=== PATIENT | female | born 1955 | race Caucasian/White ===

== ENCOUNTER 2017-10-10 09:01 | Emergency (ER) | payer OTHER, SELFPAY ==
[2017-10-10 09:10] VITALS: BP 119/70; PULSE 72; RESP 18; TEMP 36.8; O2SAT 99; BMI 27.4
--- NOTE | 2017-10-10 09:17 | HMH.EDUTC ---
[facility] [place]ression: Sinusitis Qualifiers: Sinusitis location: maxillary Chronicity: unspecified Qualified Code(s): J32.0 - Chronic maxillary sinusitis Disposition: Home, Self-Care Condition on Discharge: Good Instructions: Sinusitis, Sinus Headache, DI for Sinusitis Additional Instructions: Start antibiotic. Sinus infections may take 2-3 days to notice much improvement so be sure to use conservative measures as discussed for symptoms Flonase 2 spray in each nostril daily to help with nasal congestion, sinus an ear pressure/inflammation Lots of Fluids Sleep elevated Humidifer/vaporizer Augmentin can cause GI effects. Probiotics may help to prevent these symptoms Prescriptions: Amoxicillin/Potassium Clav [Augmentin 875-125 Tablet] 1 tab PO Q12H #14 tab Fluticasone Propionate [Flonase 50mcg nasal spray 16gm] 2 spr NS DAILY #1 bottle predniSONE [Prednisone 20mg Tab] 20 mg PO BID #10 tab Time of Disposition: 09:34 Medical Decision Making Vital Signs: 10/10/17 09:10 Temperature 98.3 F Temperature Source Temporal Artery Scan Pulse Rate [Brachial] 72 Respiratory Rate 18 Blood Pressure [Left Arm] 119/70 Blood Pressure Mean [Left Arm] 86 Blood Pressure Source [Left Arm] Automatic Cuff Blood Pressure Position [Left Arm] Sitting 02 Sat by Pulse Oximetry 99 - [place] Inquiry Pt receiving controlled substance: No [place] was queried for this patient: No [facility] [place] - General Stated complaint: head congestion Mode of Arrival: Ambulatory Source of Information: Patient Limitations: No Limitations Description of Symptoms (Recalled from Triage Doc. by RN): sinus drainage, throat irritation, ears bothering her HEENT Symptoms (Recalled from RN notes): Yes Resp Symptoms (Recalled from RN notes): No Skin Symptoms (Recalled from RN notes): No MS Symptoms (Recalled from RN notes): No Functional Status (Recalled from RN notes): na - History of Present Illness Provider Complaint: Pateint state that she has been having sinus pain and pressure along with nasal congestion on and off now for several weeks that would appear to get better then return worse than it was at start. State that she feels like her sinuses are full and draining down the back of her throat. State that her nose feels raw from rubbing and cleaning her nose and she has fever blisters on her lower lip. State that she has medication for the fever blisters that she plans on starting today State that all her grandchildren have recently had the flu and she has been exposed multiple times. 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 - Related Data Home Medications Medication Instructions Recorded Confirmed Estradiol/Norethindrone Acet 0.5 mg PO DAILY 10/10/17 10/10/17 [Estradiol-Noreth 0.5-0.1 mg Tb] Omeprazole [Omeprazole 20mg 20 mg PO DAILY 10/10/17 10/10/17 Capsule] Propranolol HCl [Inderal 20mg 20 mg PO DAILY 10/10/17 10/10/17 tablet] buPROPion HCl [Wellbutrin SR 150mg 150 mg PO DAILY 10/10/17 10/10/17 Tablet] Previous Rx's Medication Instructions Recorded Amoxicillin/Potassium Clav 1 tab PO Q12H #14 tab 10/10/17 [Augmentin 875-125 Tablet] Fluticasone Propionate [Flonase 2 spr NS DAILY #1 bottle 10/10/17 50mcg nasal spray 16gm] predniSONE [Prednisone 20mg 20 mg PO BID #10 tab 10/10/17 Tab] Allergies Allergy/AdvReac Type Severity Reaction Status Date / Time No Known Allergies Allergy Verified 10/10/17 09:14 - Worker's Comp Is this a Worker's Comp case?: No [facility] History I have reviewed the patient's past medical history: Yes - *Social History Alcohol Intake: never - Psychiatric History Expresses thoughts of harming self/others: None Suicide Plan Description: No Plan ROS Obtained: Yes All systems reviewed & no additional complaints - ENT Ears, Nose, Mouth, and Throat: Reports nasal congestion, Reports post nasal drip, Reports sinus pain,
--- NOTE | 2017-10-10 09:27 | ED_ITS ---
[facility] – [place] Disposition Clinical Impression: Sinusitis Qualifiers: Sinusitis location: maxillary Chronicity: unspecified Qualified Code(s): J32.0 - Chronic maxillary sinusitis Disposition: Home, Self-Care Condition on Discharge: Good Instructions: Sinusitis, Sinus Headache, DI for Sinusitis Additional Instructions: Start antibiotic. Sinus infections may take 2-3 days to notice much improvement so be sure to use conservative measures as discussed for symptoms Flonase 2 spray in each nostril daily to help with nasal congestion, sinus an ear pressure/inflammation Lots of Fluids Sleep elevated Humidifer/vaporizer Augmentin can cause GI effects. Probiotics may help to prevent these symptoms Prescriptions: Amoxicillin/Potassium Clav [Augmentin 875-125 Tablet] 1 tab PO Q12H #14 tab Fluticasone Propionate [Flonase 50mcg nasal spray 16gm] 2 spr NS DAILY #1 bottle predniSONE [Prednisone 20mg Tab] 20 mg PO BID #10 tab Time of Disposition: 09:34 Medical Decision Making Vital Signs: 10/10/17 09:10 Temperature 98.3 F Temperature Source Temporal Artery Scan Pulse Rate [Brachial] 72 Respiratory Rate 18 Blood Pressure [Left Arm] 119/70 Blood Pressure Mean [Left Arm] 86 Blood Pressure Source [Left Arm] Automatic Cuff Blood Pressure Position [Left Arm] Sitting 02 Sat by Pulse Oximetry 99 - [place] Inquiry Pt receiving controlled substance: No [place] was queried for this patient: No [facility] [place] HPI - General Stated complaint: head congestion Mode of Arrival: Ambulatory Source of Information: Patient Limitations: No Limitations Description of Symptoms (Recalled from Triage Doc. by RN): sinus drainage, throat irritation, ears bothering her HEENT Symptoms (Recalled from RN notes): Yes Resp Symptoms (Recalled from RN notes): No Skin Symptoms (Recalled from RN notes): No MS Symptoms (Recalled from RN notes): No Functional Status (Recalled from RN notes): na - History of Present Illness Provider Complaint: Pateint state that she has been having sinus pain and pressure along with nasal congestion on and off now for several weeks that would appear to get better then return worse than it was at start. State that she feels like her sinuses are full and draining down the back of her throat. State that her nose feels raw from rubbing and cleaning her nose and she has fever blisters on her lower lip. State that she has medication for the fever blisters that she plans on starting today State that all her grandchildren have recently had the flu and she has been exposed multiple times. 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 - Related Data Home Medications Medication Instructions Recorded Confirmed Estradiol/Norethindrone Acet 0.5 mg PO DAILY 10/10/17 10/10/17 [Estradiol-Noreth 0.5-0.1 mg Tb] Omeprazole [Omeprazole 20mg 20 mg PO DAILY 10/10/17 10/10/17 Capsule] Propranolol HCl [Inderal 20mg 20 mg PO DAILY 10/10/17 10/10/17 tablet] buPROPion HCl [Wellbutrin SR 150mg 150 mg PO DAILY 10/10/17 10/10/17 Tablet] Previous Rx's Medication Instructions Recorded Amoxicillin/Potassium Clav 1 tab PO Q12H #14 tab 10/10/17 [Augmentin 875-125 Tablet] Fluticasone Propionate [Flonase 2 spr NS DAILY #1 bottle 10/10/17 50mcg nasal spray 16gm] predniSONE [Prednisone 20mg 20 mg PO BID #10 tab 10/10/17 Tab
[2017-10-10 09:28] LABS: UTC Influenza A Antigen Negative (Negative); UTC Influenza B Antigen Negative (Negative)
== END 2017-10-10 09:37 | disposition home or self-care (01) ==
PROVIDERS: Emergency Provider Nurse Practitioner
DX: J32.0 Chronic maxillary sinusitis (principal)
CPT/HCPCS: 87804; 99202

== ENCOUNTER → 2018-01-31 12:33 | Outpatient (CLI) | payer OTHER, SELFPAY ==
--- NOTE | 2018-01-31 12:34 | MM_ITS ---
MM Dig screening mamm BI w/CAD CAD Screening ORDERING PHYSICIAN : Ronny Morales MD PATIENT AGE: 62 years GENDER: Female COMPARISON: Previous mammograms: December 2016, 2015, July 2015, 2013 INDICATION: Routine screening. Taking Estradiol. Previous mammotome biopsy left breast. Noncontributory family history TECHNIQUE: Standard CC and MLO images were obtained. Additional axillary cc view included R2 CAD reviewed. FINDINGS: No dominant mass nor suspicious calcifications. Minimal residual fibroglandular elements throughout both breasts. No architectural distortion. . RIGHT BREAST:. No significant new findings LEFT BREAST:No significant new findings Small area of minimal density at the medial left breast is been stable since at least 2014 IMPRESSION: No significant new findings. Bilateral follow-up in one year BI-RADS Category: 2 Benign Finding(s) RECOMMENDED FOLLOW-UP: 1YR - 1 YEAR FOLLOW-UP (A letter has been sent to the patient regarding results of the study.)
== END ==
PROVIDERS: PCP Internal Medicine Adolescent Medicine; Visit Provider Nurse Practitioner Obstetrics & Gynecology
DX: Z12.31 Encounter for screening mammogram for malignant neoplasm of breast (principal)
CPT/HCPCS: 77067

== ENCOUNTER → 2018-06-09 08:43 | Outpatient (CLI) | payer OTHER, SELFPAY ==
[2018-06-09 09:01] LABS: Basophils % 0.6 % (0.1-2.0); Eosinophils # 0.2 K/mm3 (0.0-0.4); Eosinophils % 2.6 % (0.1-12.0); Hemoglobin 13.6 g/dL (12.2-16.2); Lymphocytes # 2.4 K/mm3 (0.7-4.5); Mean Corpuscular HGB Conc 33.1 g/dL (31.8-35.4); Mean Corpuscular Volume 99.7 fl (81-99); Mean Platelet Volume 8.7 fl (7.4-10.4); Monocytes # 0.3 K/mm3 (0.1-1.0); Monocytes % 5.5 % (1.7-9.3); Neutrophils % 50.3 % (37.0-80.0); Platelet Count 266 K/mm3 (142-424); Red Blood Count 4.11 M/mm3 (4.20-5.40); Red Cell Distribution Width 12.4 % (11.5-17.5)
[2018-06-09 10:08] LABS: Alanine Aminotransferase 23 U/L (12-78); Albumin Level 3.5 gm/dL (3.4-5.0); Albumin/Globulin Ratio 1.2 (1.1-1.8); Alkaline Phosphatase 89 U/L (46-116); Anion Gap 8.5 mEq/L (5-15); Aspartate Amino Transferase 13 U/L (15-37); Bilirubin,Total 0.4 mg/dL (0.2-1.0); Blood Urea Nitrogen 8 mg/dL (7-18); Calcium 8.9 mg/dL (8.5-10.1); Carbon Dioxide 31 mmol/L (21.0-32.0); Chloride 111 mmol/L (98-107); Chol/HDL Ratio 2.6 (1-3.5); Cholesterol 133 mg/dL (140-200); Creatinine,Serum 0.91 mg/dL (0.55-1.02); Estimated Glomerular Filt Rate 63 ml/min (>60); GFR (African American) 76 ML/MIN (>60); Globulin 2.9 gm/dl (1.3-3.2); Glucose 96 mg/dL (74-106); HDL Cholesterol 52 mg/dL (29-89); LDL Cholesterol 73 mg/dL (0-130); Magnesium 2.1 mg/dL (1.4-2.2); Potassium 4.5 mmoL/L (3.5-5.1); Sodium 146 mmol/L (136-145); Total Protein,Serum 6.4 gm/dL (6.4-8.2); Triglycerides 41 mg/dL (30-200); VLDL Cholesterol 8 mg/dL (0-40)
== END ==
PROVIDERS: PCP Internal Medicine Adolescent Medicine; Visit Provider Internal Medicine Adolescent Medicine
DX: R00.2 Palpitations (principal); E03.9 Hypothyroidism, unspecified
CPT/HCPCS: 36415; 80053; 80061; 83735; 84443; 85025

== ENCOUNTER → 2018-07-28 12:53 | Outpatient (CLI) | payer OTHER, SELFPAY ==
[2018-07-28 13:18] LABS: Basophils # 0.1 K/mm3 (0-0.2); Basophils % 0.8 % (0.1-2.0); Eosinophils # 0.1 K/mm3 (0.0-0.4); Eosinophils % 1.3 % (0.1-12.0); Hematocrit 41.6 % (37.0-47.0); Hemoglobin 13.8 g/dL (12.2-16.2); Lymphocytes # 2.1 K/mm3 (0.7-4.5); Lymphocytes % 25.7 K/mm3 (10-50); Mean Corpuscular HGB Conc 33.2 g/dL (31.8-35.4); Mean Corpuscular Hemoglobin 33.3 pg (27.0-31.2); Mean Corpuscular Volume 100.5 fl (81-99); Mean Platelet Volume 8.3 fl (7.4-10.4); Monocytes # 0.4 K/mm3 (0.1-1.0); Neutrophils # 5.5 K/mm3 (1.8-7.8); Neutrophils % 67.2 % (37.0-80.0); Platelet Count 294 K/mm3 (142-424); Red Blood Count 4.14 M/mm3 (4.20-5.40); Red Cell Distribution Width 12.7 % (11.5-17.5); White Blood Count 8.2 K/mm3 (4.8-10.8)
[2018-07-28 14:34] LABS: Anion Gap 10.3 mEq/L (5-15); Blood Urea Nitrogen 15 mg/dL (7-18); Calcium 9.1 mg/dL (8.5-10.1); Carbon Dioxide 29 mmol/L (21.0-32.0); Chloride 107 mmol/L (98-107); Creatinine,Serum 0.96 mg/dL (0.55-1.02); Estimated Glomerular Filt Rate 59 ml/min (>60); Free Thyroxine Index 3.6 ug/dL (5.93-13.13); GFR (African American) 71 ML/MIN (>60); Glucose 89 mg/dL (74-106); Potassium 4.3 mmoL/L (3.5-5.1); Sodium 142 mmol/L (136-145); T4 (Thyroxine) 10.4 ug/dl (4.7-13.3); Thyroid Stimulating Hormone 1.56 uIU/ml (0.358-3.740); Triiodothryronine (T3) Uptake 35 % (31-39)
== END ==
PROVIDERS: PCP Internal Medicine Adolescent Medicine; Visit Provider Internal Medicine Adolescent Medicine
DX: E03.9 Hypothyroidism, unspecified (principal); R00.2 Palpitations
CPT/HCPCS: 36415; 80048; 84436; 84443; 84479; 85025

== ENCOUNTER → 2018-10-27 10:29 | Outpatient (CLI) | payer OTHER, SELFPAY ==
[2018-10-27 12:32] LABS: Free Thyroxine Index 3.5 ug/dL (5.93-13.13); T4 (Thyroxine) 9.5 ug/dl (4.7-13.3); Thyroid Stimulating Hormone 2.97 uIU/ml (0.358-3.740); Triiodothryronine (T3) Uptake 37 % (31-39)
== END ==
PROVIDERS: Visit Provider Internal Medicine Adolescent Medicine
DX: E03.9 Hypothyroidism, unspecified (principal); Z80.0 Family history of malignant neoplasm of digestive organs; Z80.41 Family history of malignant neoplasm of ovary
CPT/HCPCS: 36415; 84436; 84443; 84479

== ENCOUNTER → 2018-10-28 04:15 | Outpatient (CLI) | payer OTHER, SELFPAY ==
--- NOTE | 2018-10-28 06:30 | CT_ITS ---
CT chest wo con/high-resolution CT chest HISTORY: ITS.REASON: SOB WITH EXERTION ORDERING PHYSICIAN: John Calles MD PATIENT AGE: 63 years COMPARISON: 11/20/2016 Technique: Axial images obtained with sagittal and coronal reformats. Axial high-resolution images also obtained All CT scans at the facility use one or more dose reduction, viz: automated exposure control, ma/kV adjustment per patient size (including targeted exams where dose is matched to indication, i.e. head), or iterative reconstruction technique. FINDINGS: HEART: Unremarkable. Normal heart size. No significant pericardial effusion. MEDIASTINAL AND HILAR STRUCTURES: No mediastinal or hilar mass evident. No dominant adenopathy. There are a few calcified mediastinal and left hilar lymph nodes AORTA: No acute finding. No thoracic aortic aneurysm LUNGS: No lobar consolidation or collapse. No effusions. There are no suspicious pulmonary nodules. No evidence of interstitial lung disease or pulmonary fibrosis. There is a small nodular opacity which is subpleural in nature in the right apex medially probably due to a small area of scarring at 5 mm. There is a 4 mm opacity in the right upper lobe centrally as seen on coronal image #43 nonspecific. PLEURAL SPACES: No significant effusion. No evidence of pneumothorax. BONY STRUCTURES: There is mild multilevel degenerative disc disease of the thoracic spine. No bony destructive process. No acute fracture or dislocation. LYMPH NODES: No enlarged lymph nodes evident UPPER ABDOMEN: There is an 8 mm isodensity in the hepatic dome not significant change from 11/20/2016 and may be due to a small cyst. ADDITIONAL FINDINGS: No other significant abnormalities IMPRESSION: 1. No acute finding. No evidence of interstitial lung disease or pulmonary fibrosis. 2. Nonspecific subpleural nodular opacity in right apex at 5 mm and a 4 mm nodular opacity in the right upper lobe centrally. Consider 12 month follow-up to confirm stability 3. Stable 8 mm isodensity in the hepatic dome
== END ==
PROVIDERS: PCP Internal Medicine Adolescent Medicine; Visit Provider Internal Medicine Adolescent Medicine
DX: R06.09 Other forms of dyspnea (principal)
CPT/HCPCS: 71250

== ENCOUNTER → 2018-11-12 14:17 | Outpatient (POV) | payer OTHER, SELFPAY | DX: Z00.00 Encounter for general adult medical examination without abnormal findings (principal) ==

== ENCOUNTER → 2018-12-22 12:58 | Outpatient (CLI) | payer OTHER, SELFPAY | PROVIDERS: PCP Internal Medicine Adolescent Medicine; Visit Provider Internal Medicine Adolescent Medicine | DX: N39.0 Urinary tract infection, site not specified (principal) | CPT/HCPCS: 87086 ==

== ENCOUNTER 2019-02-27 18:49 | Emergency (ER) | payer OTHER, SELFPAY ==
[2019-02-27 19:07] VITALS: BP 136/71; PULSE 76; RESP 20; TEMP 36.6; O2SAT 100; BMI 29.2
--- NOTE | 2019-02-27 19:10 | HMH.EDUTC ---
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 Lab Results 02/27/19 18:53: Urine Color Yellow, Urine Appearance Clear, Urine pH 7.0, Ur Specific [place] 1.015, Urine Protein Trace, Urine Glucose (UA) Negative, Urine Ketones Negative, Urine Blood 3+, Urine Nitrate Negative, Urine Bilirubin Negative, Urine Urobilinogen 0.2, Ur Leukocyte Esterase 1+ A [facility] [place] HPI - General Stated complaint: Possible UTI Time Seen by Provider: 02/27/19 19:10 Mode of Arrival: Ambulatory Source of Information: Patient Limitations: No Limitations Description of Symptoms (Recalled from Triage Doc. 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 Onset (ago): hour(s) (3) Relieving factors: none Exacerbating factors: none Associated symptoms: denies other symptoms Treatments prior to arrival: none - Related Data Home Medications Medication Instructions Recorded Confirmed Propranolol HCl [Inderal 20mg 20 mg PO DAILY 10/10/17 01/26/19 tablet] buPROPion HCl [Wellbutrin SR 150mg 150 mg PO DAILY 10/10/17 01/26/19 Tablet] cyanocobalamin (vit B-12) 2,500 2,500 mcg SUBLINGUAL BID 12/12/17 01/26/19 mcg sublingual tablet Levothyroxine Sodium 75 mcg PO DAILY 11/04/18 01/26/19 [Levothyroxine 75mcg (0.075mg) Tab] Previous Rx's Medication Instructions Recorded estradiol-norethindrone acet 0.5 1 tab PO DAILY #28 tab 05/12/18 mg-0.1 mg tablet Ondansetron [Zofran 4mg ODT] 4 mg PO Q8HP PRN #20 tab.rapdis 12/14/18 Phenazopyridine HCl [Pyridium 200 pow PO TID #6 tab 12/14/18 200mg Tablet] Ciprofloxacin HCl [Cipro 500mg 500 mg PO BID 5 Days #10 tab 02/27/19 Tab] Phenazopyridine HCl [Pyridium 200 mg PO Q8HP PRN 2 Days #6 tab 02/27/19 200mg Tablet] Allergies Allergy/AdvReac Type Severity Reaction Status Date / Time No Known Allergies Allergy Verified 01/26/19 10:43 - Worker's Comp Is this a Worker's Comp case?: No [facility] History - Hepatitis A Screen Drug use history?: No High risk sexual behaviors?: No History of sexually transmitted infection?: No Currently employed?: No Childcare worker?: No Do you have indoor plumbing?: Yes Do you have electricity?: Yes Attestation statement:: This patient has been screened for Hepatitis A risk factors. I have reviewed the patient's past medical history: Yes Medical History: Reports:: Anxiety, Gastroesophageal Reflux Disease(GERD) Denies:: Asthma, Diabetes Mellitus Type 1, Diabetes Mellitus Type 2, Hypertension, Internal Pacemaker, Lung Disease, Seizures Other Medical History: Reports: Hypothyroidism Other Surgeries: Yes: Tubal Ligation, Other (TVT). No: Pacemaker Amputation: No Fractures: No Comment: tvt - Soc
[2019-02-27 19:11] LABS: Apearance,Urine Clear (Clear); Bilirubin,Urine Negative (Negative); Blood, Urine 3+ (Negative); Color,Urine Yellow (Yellow); Glucose,Urine (UA) Negative (Negative); Ketones,Urine Negative (Negative); Protein,Urine Trace (Negative); Specific Gravity, Urine 1.015 (1.005-1.030); UTC Leukocyte Esterase,Urine 1+ (Negative); Urobilinogen,Urine 0.2 EU/dl (0.2)
[2019-02-27 19:12] LABS: UTC Nitrate,Urine Negative (Negative)
--- NOTE | 2019-02-27 19:16 | ED_ITS ---
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 Lab Results 02/27/19 18:53: Urine Color Yellow, Urine Appearance Clear, Urine pH 7.0, Ur Specific [place] 1.015, Urine Protein Trace, Urine Glucose (UA) Negative, Urine Ketones Negative, Urine Blood 3+, Urine Nitrate Negative, Urine Bilirubin Negative, Urine Urobilinogen 0.2, Ur Leukocyte Esterase 1+ A [facility] [place] HPI - General Stated complaint: Possible UTI Time Seen by Provider: 02/27/19 19:10 Mode of Arrival: Ambulatory Source of Information: Patient Limitations: No Limitations Description of Symptoms (Recalled from Triage Doc. 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 Onset (ago): hour(s) (3) Relieving factors: none Exacerbating factors: none Associated symptoms: denies other symptoms Treatments prior to arrival: none - Related Data Home Medications Medication Instructions Recorded Confirmed Propranolol HCl [Inderal 20mg 20 mg PO DAILY 10/10/17 01/26/19 tablet] buPROPion HCl [Wellbutrin SR 150mg 150 mg PO DAILY 10/10/17 01/26/19 Tablet] cyanocobalamin (vit B-12) 2,500 2,500 mcg SUBLINGUAL BID 12/12/17 01/26/19 mcg sublingual tablet Levothyroxine Sodium 75 mcg PO DAILY 11/04/18 01/26/19 [Levothyroxine 75mcg (0.075mg) Tab] Previous Rx's Medication Instructions Recorded estradiol-norethindrone acet 0.5 1 tab PO DAILY #28 tab 05/12/18 mg-0.1 mg tablet Ondansetron [Zofran 4mg ODT] 4 mg PO Q8HP PRN #20 tab.rapdis 12/14/18 Phenazopyridine HCl [Pyridium 200 pow PO TID #6 tab 12/14/18 200mg Tablet] Ciprofloxacin HCl [Cipro 500mg 500 mg PO BID 5 Days #10 tab 02/27/19 Tab] Phenazopyridine HCl [Pyridium 200 mg PO Q8HP PRN 2 Days #6 tab 02/27/19 200mg Tablet] Allergies Allergy/AdvReac Type Severity Reaction Status Date / Time No Known Allergies Allergy Verif
[2019-02-27 19:26] VITALS: BP 136/71; PULSE 76; RESP 20; TEMP 36.6; O2SAT 100
== END 2019-02-27 19:27 | disposition home or self-care (01) ==
PROVIDERS: Emergency Provider Physician Assistant; PCP Internal Medicine Adolescent Medicine
DX: N30.00 Acute cystitis without hematuria (principal); K21.9 Gastro-esophageal reflux disease without esophagitis; F41.9 Anxiety disorder, unspecified; E03.9 Hypothyroidism, unspecified
CPT/HCPCS: 81003; 99201

== ENCOUNTER → 2019-04-28 14:30 | Outpatient (CLI) | payer OTHER, SELFPAY ==
[2019-04-28 14:32] LABS: Microscopic, Urine URINE MICROSCOPIC (MICROSCOPIC)
[2019-04-28 15:00] LABS: Appearance,Urine CLEAR (Clear); Bilirubin,Urine Negative (Negative); Blood, Urine TRACE-L (Negative); Color,Urine YELLOW (Yellow); Glucose,Urine (UA) Negative (Negative); Ketones,Urine Negative (Negative); Leukocyte Esterase,Urine Negative (Negative); Nitrate,Urine Negative (Negative); PH,Urine 6.5 (5.0-8.5); Protein,Urine Negative (Negative); Specific Gravity, Urine 1.015 (1.005-1.030); Urobilinogen,Urine 0.2 EU/dl (0.2)
[2019-04-28 15:34] LABS: Bacteria,Urine Trace /lpf; WBC,Urine Occasional #/hpf (0-3)
== END ==
PROVIDERS: Visit Provider Internal Medicine Adolescent Medicine
DX: N39.0 Urinary tract infection, site not specified (principal)
CPT/HCPCS: 81001; 87086

== ENCOUNTER 2019-05-15 13:28 | Outpatient (CLI) | payer OTHER, SELFPAY ==
--- NOTE | 2019-05-15 13:30 | MM_ITS ---
PROCEDURE: MM DIG SCREENING MAMM BI W/CAD CLINICAL INDICATION: Routine Screening Mammogram no hormones. Has been off estradiol 6 months No new complaints. Previous mammotome biopsy left breast Family history. Noncontributory COMPARISON: [facility] DIGITAL MAMM-SCREEN BILATERAL from 05/30/2012 [facility] DIG MAMM-SCREEN STEVE from 07/07/2013 [facility] DIG MAMM-SCREEN STEVE from 07/20/2014 [facility] DIG MAMM-DX UNI ADD VIEWS-LT from 08/10/2014 [facility] DIG MAMM-SCREEN STEVE from 08/18/2015 [facility]XU[facility]L DIG MAMM-DX UNI ADD VIEWS-LT from 08/24/2015 DMDXUWAL DIG MAMM-DX UNI LT W ADD VIEW from 01/26/2016 [facility] DIG MAMM-SCREEN STEVE W/CAD from 01/23/2017 [facility] MM Dig screening mamm BI w/CAD from 01/31/2018 TECHNIQUE: Standard CC and MLO images were obtained. R2 CAD reviewed. FINDINGS: Minimal residual fibroglandular elements both breast moderate diffuse fatty replacement.. No new areas of concern in either breast. Areas of minor asymmetry appear stable. With no dominant or suspicious mass., no suspicious calcifications. Right mammogram:: Stable. No new areas of significant concern. Stable area of mild asymmetric fibroglandular density at the lateral right breast most noted on CC view.. Unchanged since 2013, 2014 CC view. Also it dissipates on today's axillary CC view and MLO view. Left mammogram: stable appearance with no findings of significant concern. Follow-up in 1 year recommended IMPRESSION: Stable mammogram. No new findings of concern Bilateral follow-up 1 year recommended and encouraged BI-RAD Category: 1 Negative FOLLOW-UP: 1YR 1 Year Follow-up (A letter has been sent to the patient regarding results of the study.) Dictated by: Aaron Shaffer MD 05/18/2019 12:00 Signed by: <Electronically signed by Aaron Shaffer MD in [place]> 05/19/2019 12:33
[2019-05-15 14:49] LABS: Microscopic, Urine URINE MICROSCOPIC (MICROSCOPIC)
[2019-05-15 14:54] LABS: Appearance,Urine CLEAR (Clear); Bilirubin,Urine Negative (Negative); Blood, Urine TRACE-I (Negative); Color,Urine YELLOW (Yellow); Glucose,Urine (UA) Negative (Negative); Ketones,Urine Negative (Negative); Leukocyte Esterase,Urine Negative (Negative); Nitrate,Urine Negative (Negative); Protein,Urine Negative (Negative)
[2019-05-15 15:16] LABS: Bacteria,Urine Trace /lpf; RBC,Urine Occasional #/hpf (0-3); Squamous Epithelial Cell,Urine Occasional #/hpf (0-5); WBC,Urine Occasional #/hpf (0-3)
--- NOTE | 2019-05-15 16:27 | PC.NURSE ---
1435 - I&O CATH DONE FOR U/A AND CULTURE AT THIS TIME.
== END 2019-05-15 14:45 | disposition home or self-care (01) ==
LOC: RAD 13:28
PROVIDERS: PCP Internal Medicine Adolescent Medicine; Visit Provider Nurse Practitioner Obstetrics & Gynecology
DX: Z12.31 Encounter for screening mammogram for malignant neoplasm of breast (principal); N94.89 Other specified conditions associated with female genital organs and menstrual cycle; Z87.440 Personal history of urinary (tract) infections
CPT/HCPCS: 77067; 81001; 87086

== ENCOUNTER → 2019-06-23 13:39 | Outpatient (POV) | payer OTHER, SELFPAY | PROVIDERS: Visit Provider Dermatology | DX: Z00.00 Encounter for general adult medical examination without abnormal findings (principal) ==

== ENCOUNTER → 2019-11-25 02:03 | Outpatient (CLI) | payer OTHER, SELFPAY ==
[2019-11-25 04:32] VITALS: BMI 29.2
== END ==
LOC: OBOUT 02:05 → OUTP 02:09
PROVIDERS: PCP Internal Medicine Adolescent Medicine; Visit Provider Emergency Medicine
DX: J32.9 Chronic sinusitis, unspecified (principal)
CPT/HCPCS: G0463

== ENCOUNTER → 2020-04-28 02:59 | Outpatient (CLI) | payer OTHER, SELFPAY ==
[2020-04-28 03:44] LABS: Coronavirus 19 IgG Antibody Negative (Negative); Coronavirus 19 IgM Antibody Negative (Negative)
== END ==
PROVIDERS: PCP Internal Medicine Adolescent Medicine; Visit Provider Family Medicine
DX: Z03.818 Encounter for observation for suspected exposure to other biological agents ruled out (principal)
CPT/HCPCS: 86328

== ENCOUNTER → 2020-05-02 11:44 | Outpatient (CLI) | payer OTHER, SELFPAY ==
--- NOTE | 2020-05-02 11:48 | XR_ITS ---
PROCEDURE: XR FOOT WT BEARING RT 3V CLINICAL INDICATION: pain COMPARISON: No exams were available for comparison FINDINGS: No fracture or dislocation. No lytic or blastic change. There is normal mineralization. The joint spaces are well-preserved. No significant degenerative/arthritic changes. No erosive changes evident. Other findings:None. IMPRESSION: No acute findings. Dictated by: Kevan Belle MD 05/02/2020 13:12 Electronically signed by Kevan Belle MD in [place] 05/02/2020 13:12
--- NOTE | 2020-05-02 11:48 | XR_ITS ---
PROCEDURE: XR FOOT WT BEARING LT 3V CLINICAL INDICATION: pain COMPARISON: No exams were available for comparison FINDINGS: No fracture or dislocation. No lytic or blastic change. There is normal mineralization. There are mild osteoarthritic changes at the 1st metatarsophalangeal joint Other findings:There is a type 1 os navicularis. Minimal osteoarthritic changes are present at the talonavicular and navicular cuneiform joint. There is a small calcaneal spur IMPRESSION: Mild osteoarthritic change Dictated by: Kevan Belle MD 05/02/2020 13:28 Electronically signed by Kevan Belle MD in [place] 05/02/2020 13:28
== END ==
PROVIDERS: PCP Internal Medicine Adolescent Medicine; Visit Provider Podiatrist
DX: M72.2 Plantar fascial fibromatosis (principal)
CPT/HCPCS: 73630

== ENCOUNTER → 2020-05-04 14:18 | Outpatient (CLI) | payer OTHER, SELFPAY ==
[2020-05-04 14:58] LABS: Basophils % 0.3 % (0.1-2.0); Eosinophils % 0.4 % (0.1-12.0); Hematocrit 41.4 % (37.0-47.0); Hemoglobin 13.7 g/dL (12.2-16.2); Lymphocytes # 1.8 K/mm3 (0.7-4.5); Lymphocytes % 23.9 % (10-50); Mean Corpuscular HGB Conc 33.1 g/dL (31.8-35.4); Mean Corpuscular Hemoglobin 33.8 pg (27.0-31.2); Mean Corpuscular Volume 102.4 fl (81-99); Monocytes # 0.3 K/mm3 (0.1-1.0); Monocytes % 3.8 % (1.7-9.3); Neutrophils # 5.4 K/mm3 (1.8-7.8); Neutrophils % 71.6 % (37.0-80.0); Platelet Count 279 K/mm3 (142-424); Red Blood Count 4.05 M/mm3 (4.20-5.40); Red Cell Distribution Width 12.8 % (11.5-17.5); White Blood Count 7.5 K/mm3 (4.8-10.8)
[2020-05-04 15:31] LABS: Alanine Aminotransferase 15 U/L (12-78); Albumin Level 4.2 g/dl (3.5-5.0); Albumin/Globulin Ratio 1.6 (1.1-1.8); Alkaline Phosphatase 96 U/L (38-126); Anion Gap 12.7 mEq/L (5-15); Aspartate Amino Transferase 24 U/L (14-36); Bilirubin,Total 0.6 mg/dl (0.2-1.3); Blood Urea Nitrogen 21 mg/dl (7-17); Calcium 9.9 mg/dl (8.4-10.2); Carbon Dioxide 29 mmol/L (22.0-30.0); Chloride 105 mmol/L (98-107); Cholesterol 198 mg/dl (140-200); Estimated Glomerular Filt Rate 84 ml/min (>60); GFR (African American) 102 ML/MIN (>60); Globulin 2.7 g/dL (1.3-3.2); Glucose 104 mg/dl (74-100); HDL Cholesterol 98 mg/dl (40-60); Potassium 4.7 mmoL/L (3.5-5.1); Sodium 142 mmol/L (136-145); Total Protein,Serum 6.9 g/dl (6.3-8.2); Triglycerides 49 mg/dl (30-150); VLDL Cholesterol 10 mg/dL (0-40)
[2020-05-04 15:41] LABS: Direct LDL Cholesterol 87.12 mg/dL (100-129)
[2020-05-04 16:01] LABS: Thyroid Stimulating Hormone 1.91 uIU/mL (0.465-4.68)
== END ==
PROVIDERS: Visit Provider Internal Medicine Adolescent Medicine
DX: E03.9 Hypothyroidism, unspecified (principal); K21.9 Gastro-esophageal reflux disease without esophagitis
CPT/HCPCS: 36415; 80053; 80061; 84443; 85025

== ENCOUNTER → 2020-05-17 15:47 | Outpatient (CLI) | payer OTHER, SELFPAY ==
--- NOTE | 2020-05-17 15:48 | MM_ITS ---
PROCEDURE: MM DIG SCREENING MAMM BI W/CAD Digital Breast Tomosynthesis Included CLINICAL INDICATION: Routine Screening Mammogram There is a history of breast cancer patient's 2 maternal aunts. There has been a previous biopsy left breast for benign disease. COMPARISON: MG [facility] DIG MAMM-SCREEN STEVE W/CAD from 01/23/2017 MG [facility] MM Dig screening mamm BI w/CAD from 01/31/2018 MG MM DIG SCREENING MAMM BI W/CAD from 05/15/2019 TECHNIQUE: Standard CC and MLO images and 3D Tomosynthesis was obtained. R2 CAD reviewed. FINDINGS: The breasts are composed primarily of fat with minimal scattered fibroglandular densities in each breast and the findings of bilateral and symmetrical. There is no suspicious lesion in either breast and no suspicious microcalcifications. IMPRESSION: Fibrofatty parenchyma with no suspicious lesions seen BI-RAD Category: 1 Negative FOLLOW-UP: 1YR 1 Year Follow-up (A letter has been sent to the patient regarding results of the study.) Dictated by: Dr. Andrew Ramirez MD 05/18/2020 16:45 Dr. Andrew Ramirez MD in [place] 05/18/2020 16:45
== END ==
PROVIDERS: PCP Internal Medicine Adolescent Medicine; Visit Provider Nurse Practitioner Obstetrics & Gynecology
DX: Z12.31 Encounter for screening mammogram for malignant neoplasm of breast (principal)
CPT/HCPCS: 77063; 77067

== ENCOUNTER 2020-09-02 14:24 | Emergency (ER) | payer OTHER, SELFPAY ==
[2020-09-02 14:38] VITALS: BP 156/83; PULSE 67; RESP 18; O2SAT 100
--- NOTE | 2020-09-02 14:48 | HMH.EDUTC ---
[facility] [place] Disposition Clinical Impression: UTI (urinary tract infection) Qualifiers: Urinary tract infection type: site unspecified Hematuria presence: with hematuria Qualified Code(s): N39.0 - Urinary tract infection, site not specified Disposition: Home, Self-Care Condition on Discharge: Good Instructions: Urinary Tract Infection, DI for Urinary Tract Infection (UTI) Additional Instructions: Drink plenty of fluids. Take tylenol for pain or fever. Return if you begin to have difficulty breathing. Follow up with your regular doctor. GO TO THE ER FOR ANY WORSENING SYMPTOMS The pyridium will make your urine turn orange, this is an expected side effect. It will stain your clothes if it comes into contact with them. Prescriptions: Sulfamethoxazole/Trimethoprim [Bactrim DS tablet] 1 each PO BID 7 Days #14 tab Transmission Status: Received by [facility] Phenazopyridine HCl [Pyridium 200mg Tablet] 200 pow PO TID #6 tab Transmission Status: Received by [facility]/ Referrals: John Calles MD [Primary Care Provider] - Forms: Work/School Release Time of Disposition: 14:57 Medical Decision Making - Medical Records Medical records reviewed: No: I reviewed the patient's medical records. - [place] Inquiry Pt receiving controlled substance: No Vital Signs: 09/02/20 14:38 09/02/20 15:04 Temperature 98.1 F Temperature Source Oral Pulse Rate 67 Pulse Rate [Radial] 67 Respiratory Rate 18 18 Blood Pressure 156/86 H Blood Pressure [Right Arm] 156/83 H Blood Pressure Mean [Right Arm] 107 Blood Pressure Source Automatic Cuff Blood Pressure Source [Right Arm] Automatic Cuff Blood Pressure Position Sitting Blood Pressure Position [Right Arm] Sitting 02 Sat by Pulse Oximetry 100 Oxygen Delivery Method Room Air Room Air - Lab Data Lab results reviewed: Yes: I reviewed the patient's lab results. Lab Results 09/02/20 14:26: Urine Color Red, Urine Appearance Clear, Urine pH 7.0, Ur Specific Loco 1.025, Urine Protein 3+, Urine Glucose (UA) Negative, Urine Ketones Negative, Urine Blood 3+, Urine Nitrate Positive A, Urine Bilirubin 1+ A, Urine Urobilinogen 1, Ur Leukocyte Esterase 1+ A Orders (Tests/Meds): ORDERS Category Date Time Status Urine Culture Stat Micro 09/02/20 15:00 Received [facility] [place] HPI - General Stated complaint: Possible bladder infection Time Seen by Provider: 09/02/20 14:48 Mode of Arrival: Ambulatory Source of Information: Patient Limitations: No Limitations Description of Symptoms (Recalled from Triage Doc. by RN): possible uti. blood in urine HEENT Symptoms (Recalled from RN notes): No Resp Symptoms (Recalled from RN notes): No Skin Symptoms (Recalled from RN notes): No MS Symptoms (Recalled from RN notes): No Functional Status (Recalled from RN notes): wnl - History of Present Illness Provider Complaint: She states that she started to have dysuria last night. Since then she has had low back pain, hematuria and urinary frequency. - Related Data Home Medications Medication Instructions Recorded Confirmed Propranolol HCl [Inderal 20mg 20 mg PO DAILY 10/10/17 08/01/20 tablet] cyanocobalamin (vitamin B-12) 2,500 mcg SUBLINGUAL BID 12/12/17 08/01/20 2,500 mcg sublingual tablet Levothyroxine Sodium 75 mcg PO DAILY 11/04/18 08/01/20 [Levothyroxine 75mcg (0.075mg) Tab] cholecalciferol (vitamin D3) 125 125 mcg PO DAILY 08/01/20 08/01/20 mcg (5,000 unit) capsule Previous Rx's Medication Instructions Recorded conjugated estrogens 0.625 mg/gram 0.625 mg VAGINAL .twice weekly #30 08/01/20 vaginal cream g Phenazopyridine HCl [Pyridium 200 pow PO TID #6 tab 09/02/20 200mg Tablet] Sulfamethoxazole/Trimethoprim 1 each PO BID 7 Days #14 tab 09/02/20 [Bactrim DS tablet] Allergies Allergy/AdvReac Type Severity Reaction Status Date / Time No Known Allergies Allergy Verified 08/01/20 10:08 - Worker's Comp
[2020-09-02 15:04] VITALS: BP 156/86; PULSE 67; RESP 18; TEMP 36.7; O2SAT 100
[2020-09-02 15:37] LABS: Apearance,Urine Clear (Clear); Bilirubin,Urine 1+ (Negative); Blood, Urine 3+ (Negative); Color,Urine Red (Yellow); Glucose,Urine (UA) Negative (Negative); Ketones,Urine Negative (Negative); Protein,Urine 3+ (Negative); Specific Gravity, Urine 1.025 (1.005-1.030); Urobilinogen,Urine 1 EU/dl (0.2)
[2020-09-02 15:38] LABS: UTC Leukocyte Esterase,Urine 1+ (Negative); UTC Nitrate,Urine Positive (Negative)
== END 2020-09-02 15:05 | disposition home or self-care (01) ==
PROVIDERS: Emergency Provider Nurse Practitioner Family; PCP Internal Medicine Adolescent Medicine
DX: N30.01 Acute cystitis with hematuria (principal); E03.9 Hypothyroidism, unspecified; K21.9 Gastro-esophageal reflux disease without esophagitis; F41.9 Anxiety disorder, unspecified; Z79.899 Other long term (current) drug therapy
CPT/HCPCS: 81003; 87086; 87088; 87186; 99201

== ENCOUNTER → 2021-05-24 11:06 | Outpatient (CLI) | payer OTHER, SELFPAY ==
[2021-05-24 11:47] LABS: Basophils # 0.1 K/mm3 (0-0.2); Basophils % 1.2 % (0.1-2.0); Eosinophils # 0.1 K/mm3 (0.0-0.4); Eosinophils % 2.2 % (0.1-12.0); Hematocrit 43.5 % (37.0-47.0); Hemoglobin 14.4 g/dL (12.2-16.2); Lymphocytes # 1.7 K/mm3 (0.7-4.5); Mean Corpuscular HGB Conc 33.2 g/dL (31.8-35.4); Mean Corpuscular Hemoglobin 33.5 pg (27.0-31.2); Mean Corpuscular Volume 100.9 fl (81-99); Monocytes # 0.4 K/mm3 (0.1-1.0); Monocytes % 6.1 % (1.7-9.3); Neutrophils # 3.8 K/mm3 (1.8-7.8); Neutrophils % 62.5 % (37.0-80.0); Platelet Count 310 K/mm3 (142-424); Red Blood Count 4.31 M/mm3 (4.20-5.40); Red Cell Distribution Width 13.1 % (11.5-17.5); White Blood Count 6.1 K/mm3 (4.8-10.8)
[2021-05-24 12:33] LABS: Chloride 107 mmol/L (98-107); Potassium 5.3 mmoL/L (3.5-5.1); Sodium 142 mmol/L (136-145)
[2021-05-24 12:35] LABS: Alanine Aminotransferase 12 U/L (12-78); Aspartate Amino Transferase 27 U/L (14-36); Blood Urea Nitrogen 14 mg/dl (7-17); Estimated Glomerular Filt Rate 63 ml/min (>60); GFR (African American) 76 ML/MIN (>60)
[2021-05-24 12:36] LABS: Albumin/Globulin Ratio 1.4 (1.1-1.8); Alkaline Phosphatase 93 U/L (38-126); Anion Gap 12.3 mEq/L (5-15); Bilirubin,Total 0.7 mg/dl (0.2-1.3); Calcium 9.7 mg/dl (8.4-10.2); Carbon Dioxide 28 mmol/L (22.0-30.0); Chol/HDL Ratio 2.4 (1-3.5); Cholesterol 190 mg/dl (140-200); Globulin 2.8 g/dL (1.3-3.2); Glucose 97 mg/dl (74-100); HDL Cholesterol 80 mg/dl (40-60); Total Protein,Serum 6.8 g/dl (6.3-8.2); Triglycerides 57 mg/dl (30-150); VLDL Cholesterol 11 mg/dL (0-40)
[2021-05-24 12:47] LABS: Direct LDL Cholesterol 85.88 mg/dL (100-129)
[2021-05-24 13:06] LABS: Thyroid Stimulating Hormone 1.95 uIU/mL (0.465-4.68)
== END ==
PROVIDERS: Visit Provider Internal Medicine Adolescent Medicine
DX: R00.2 Palpitations (principal); E03.9 Hypothyroidism, unspecified
CPT/HCPCS: 36415; 80053; 80061; 84443; 85025

== ENCOUNTER → 2021-05-30 08:29 | Outpatient (CLI) | payer OTHER, SELFPAY ==
--- NOTE | 2021-05-30 08:30 | MM_ITS ---
PROCEDURE: MM DIG SCREENING MAMM BI W/CAD Digital Breast Tomosynthesis Included CLINICAL INDICATION: Routine Screening Mammogram COMPARISON: MG [facility] MM Dig screening mamm BI w/CAD from 01/31/2018 MG MM DIG SCREENING MAMM BI W/CAD from 05/15/2019 MG MM DIG SCREENING MAMM BI W/CAD from 05/17/2020 TECHNIQUE: Standard CC and MLO images and 3D Tomosynthesis was obtained. R2 CAD reviewed. FINDINGS: There are scattered areas of fibroglandular density. No suspicious appearing mass, malignant-appearing microcalcification, architectural distortion, or skin thickening. IMPRESSION: No change with no evidence of malignancy BI-RAD Category: 1 Negative FOLLOW-UP: 1 YR 1 Year Follow-up (A letter has been sent to the patient regarding results of the study.) Dictated by: Kevan Belle MD 06/06/2021 15:23 Kevan Belle MD in [place] 06/06/2021 15:23
== END ==
PROVIDERS: PCP Internal Medicine Adolescent Medicine; Visit Provider Nurse Practitioner Obstetrics & Gynecology
DX: Z12.31 Encounter for screening mammogram for malignant neoplasm of breast (principal)
CPT/HCPCS: 77063; 77067

== ENCOUNTER 2021-07-01 12:34 | Emergency (ER) | payer OTHER, SELFPAY ==
[2021-07-01 13:20] VITALS: BP 139/83; PULSE 83; RESP 19; TEMP 36.8; O2SAT 98; BMI 29.0
[2021-07-01 13:40] LABS: Apearance,Urine Cloudy (Clear); Color,Urine Red (Yellow); PH,Urine 8.5 (5.0-8.5); Specific Gravity, Urine 1.015 (1.005-1.030)
--- NOTE | 2021-07-01 13:40 | HMH.EDUTC ---
[facility] [place] Disposition Clinical Impression: UTI (urinary tract infection) Qualifiers: Urinary tract infection type: acute cystitis Hematuria presence: with hematuria Qualified Code(s): N30.01 - Acute cystitis with hematuria Disposition: Home, Self-Care Condition on Discharge: Good Instructions: DI for Urinary Tract Infection (UTI) Additional Instructions: Increase fluids, water and not soda or tea. Can drink cranberry juice or cranberry extract. White front to back Wear cotton underwear Empty bladder after intercourse Start antibiotics immediately and make sure you take the full course although you may start to see improvement over the next 48 hours. You can eat yogurt or take probiotics to decrease diarrhea or yeast infection caused by the antibiotic Be sure to follow-up anytime for new or worsening symptoms in 48 hours for wound urine culture results be sure to let you PCP no recent urine for culture so they can request records and ensure that you have appropriate antibiotic if you are not getting better or getting worse. If symptoms worsen or do not improve return or be seen in the ER. Follow-up with primary care this week. Prescriptions: cephALEXin [Cephalexin 500mg Tab] 500 mg PO BID 7 Days #14 tab Transmission Status: [facility] Phenazopyridine HCl [Pyridium] 100 mg PO BID PRN 3 Days #6 tab PRN Reason: Dysuria Transmission Status: P[facility] to [facility] Referrals: John Calles MD [Primary Care Provider] - Time of Disposition: 13:45 Medical Decision Making - [place] Inquiry Pt receiving controlled substance: No Vital Signs: 07/01/21 13:20 Temperature 98.3 F Temperature Source Oral Pulse Rate [Right Brachial] 83 Respiratory Rate 19 Blood Pressure [Right Arm] 139/83 Blood Pressure Mean [Right Arm] 101 Blood Pressure Source [Right Arm] Automatic Cuff Blood Pressure Position [Right Arm] Sitting 02 Sat by Pulse Oximetry 98 Oxygen Delivery Method Room Air Orders (Tests/Meds): ORDERS Category Date Time Status Urine Culture Stat Micro 07/01/21 13:15 Received [facility] [place] HPI - General Chief complaint: Urgent Treatment Center Stated complaint: POSIBLE uti Time Seen by Provider: 07/01/21 13:40 Mode of Arrival: Ambulatory Source of Information: Patient Limitations: No Limitations Description of Symptoms (Recalled from Triage Doc. by RN): PATIENT C/O HEMATURIA AND PELVIC PRESSURE THAT STARTED THIS MORNING HEENT Symptoms (Recalled from RN notes): No Resp Symptoms (Recalled from RN notes): No Skin Symptoms (Recalled from RN notes): No MS Symptoms (Recalled from RN notes): No Functional Status (Recalled from RN notes): WNL - History of Present Illness Provider Complaint: 66 yr old female presents for burning,freq,urgency and blood in urine since this am. - Related Data Home Medications Medication Instructions Recorded Confirmed Propranolol HCl [Inderal 20mg 20 mg PO DAILY 10/10/17 12/12/20 tablet] cyanocobalamin (vitamin B-12) 2,500 mcg SUBLINGUAL BID 12/12/17 12/12/20 2,500 mcg sublingual tablet Levothyroxine Sodium 75 mcg PO DAILY 11/04/18 12/12/20 [Levothyroxine 75mcg (0.075mg) Tab] cholecalciferol (vitamin D3) 125 125 mcg PO DAILY 08/01/20 12/12/20 mcg (5,000 unit) capsule Previous Rx's Medication Instructions Recorded Phenazopyridine HCl [Pyridium 200 pow PO TID #6 tab 09/02/20 200mg Tablet] Sulfamethoxazole/Trimethoprim 1 each PO BID 7 Days #14 tab 09/02/20 [Bactrim DS tablet] estradiol 1 appful VAGINAL .twice weekly 03/02/21 #42.5 g Phenazopyridine HCl [Pyridium] 100 mg PO BID PRN 3 Days #6 tab 07/01/21 cephALEXin [Cephalexin 500mg Tab] 500 mg PO BID 7 Days #14 tab 07/01/21 Allergies Allergy/AdvReac Type Severity Reaction Status Date / Time No Known Allergies Allergy Verified 12/12/20 10:55 - Worker's Comp Is this a Worker's Comp case?: No [facility] History - Hepatitis A Screen Drug use history?: No High risk sexu
[2021-07-01 13:41] LABS: Bilirubin,Urine 3+ (Negative); Blood, Urine 3+ (Negative); Glucose,Urine (UA) 100 (Negative); Ketones,Urine 15 (Negative); Protein,Urine 3+ (Negative); UTC Leukocyte Esterase,Urine 3+ (Negative); UTC Nitrate,Urine Positive (Negative); Urobilinogen,Urine 4 EU/dl (0.2)
[2021-07-01 13:55] VITALS: BP 139/83; PULSE 83; RESP 19; TEMP 36.8; O2SAT 98
== END 2021-07-01 13:59 | disposition home or self-care (01) ==
PROVIDERS: Emergency Provider Nurse Practitioner Family; PCP Internal Medicine Adolescent Medicine
DX: N30.01 Acute cystitis with hematuria
CPT/HCPCS: 81003; 87086; 99202; G0463

== ENCOUNTER 2021-09-27 18:41 | Emergency (ER) | payer OTHER, SELFPAY ==
[2021-09-27 18:50] VITALS: BP 152/44; PULSE 72; RESP 20; TEMP 36.9; O2SAT 97; BMI 32.4
[2021-09-27 19:35] LABS: UTC Strep Screen (Rapid) Negative (Negative)
--- NOTE | 2021-09-27 19:44 | HMH.EDUTC ---
[facility] [place] Clinical Impression: Otitis media Qualifiers: Otitis media type: unspecified Laterality: left Qualified Code(s): H66.92 - Otitis media, unspecified, left ear Disposition: Home, Self-Care Condition on Discharge: Good Instructions: Sore Throat, Middle Ear Infection, Amoxicillin Additional Instructions: *Monitor Temp, Over the counter Motrin or Tylenol as directed/as needed Tylenol every 4 hours and Motrin every 6 hours (as long as your family doctor has told you that you can take it) for fever or pain. and straight to ER if unable to lower temp less than 101.0 after medication given *Warm salt water gargles may help to soothe the throat *Throat Lozenges *Warm fluids like tea with honey may help to soothe the throat *Sleep elevated *Humidifier/Vaporizer Take medications as prescribed Your throat swab was sent for culture. Those results are typically sent to your primary care. Be sure to follow up in 2-3 days with your family doctor/primary care physician if no improvement so they can review those result and treat if necessary. If you don?t have a primary care doctor, I recommend you get one but in the mean time, you will have to return to a walk in clinic Follow up IMMEDIATELY for new or worsening symptoms or no Noticeable improvement over the next 48-72 hours. 911 for difficulty breathing or swallowing Prescriptions: Amoxicillin [Amoxicillin 500mg Cap] 500 mg PO TID #30 cap Transmission Status: [facility] methylPREDNISolone [Medrol 4mg tab] 4 mg PO DIRECTED #21 tab Transmission Status: P[facility] to [facility] Referrals: John Calles MD [Primary Care Provider] - As needed Time of Disposition: 19:54 Medical Decision Making - [place] Inquiry Pt receiving controlled substance: No [place] was queried for this patient: No Vital Signs: 09/27/21 18:50 Temperature 98.5 F Temperature Source Oral Pulse Rate [Right Brachial] 72 Respiratory Rate 20 Blood Pressure [Right Arm] 152/44 H Blood Pressure Mean [Right Arm] 80 Blood Pressure Source [Right Arm] Automatic Cuff Blood Pressure Position [Right Arm] Sitting 02 Sat by Pulse Oximetry 97 Oxygen Delivery Method Room Air - Lab Data Lab results reviewed: Yes: I reviewed the patient's lab results. Lab Results 09/27/21 19:34: Strep [facility] Negative Orders (Tests/Meds): ORDERS Category Date Time Status Strep Screen Confirmation Routine Micro 09/27/21 19:34 Re[place] [facility] [place] - General Stated complaint: sore throat, L earache Time Seen by Provider: 09/27/21 19:44 Mode of Arrival: Ambulatory Source of Information: Patient Limitations: No Limitations Description of Symptoms (Recalled from Triage Doc. by RN): PATIENT C/O SORE THROAT, SINUS DRAINAGE, AND LEFT EAR PAIN HEENT Symptoms (Recalled from RN notes): Yes Resp Symptoms (Recalled from RN notes): No Skin Symptoms (Recalled from RN notes): No MS Symptoms (Recalled from RN notes): No Functional Status (Recalled from RN notes): WNL - Related Data Home Medications Medication Instructions Recorded Confirmed Propranolol HCl [Inderal 20mg 20 mg PO DAILY 10/10/17 09/27/21 tablet] Levothyroxine Sodium 75 mcg PO DAILY 11/04/18 09/27/21 [Levothyroxine 75mcg (0.075mg) Tab] Previous Rx's Medication Instructions Recorded Amoxicillin [Amoxicillin 500mg 500 mg PO TID #30 cap 09/27/21 Cap] methylPREDNISolone [Medrol 4mg 4 mg PO DIRECTED #21 tab 09/27/21 tab] Allergies Allergy/AdvReac Type Severity Reaction Status Date / Time No Known Allergies Allergy Verified 08/15/21 09:09 - Worker's Comp Is this a Worker's Comp case?: No [facility] History - Hepatitis A Screen Drug use history?: No High risk sexual behaviors?: No History of sexually transmitted infection?: No Currently employed?: No Childcare worker?: No Do you have indoor plumbing?: Yes Do you have electricity?: Yes Attestation [facility]
[2021-09-27 19:56] VITALS: BP 152/44; PULSE 72; RESP 20; TEMP 36.9; O2SAT 97
== END 2021-09-27 20:07 | disposition home or self-care (01) ==
PROVIDERS: Emergency Provider Nurse Practitioner; PCP Internal Medicine Adolescent Medicine
DX: H66.92 Otitis media, unspecified, left ear (principal); K21.9 Gastro-esophageal reflux disease without esophagitis; E03.9 Hypothyroidism, unspecified; F41.9 Anxiety disorder, unspecified
CPT/HCPCS: 87880; 99202; G0463

== ENCOUNTER → 2021-10-30 13:04 | Outpatient (CLI) | payer OTHER, SELFPAY ==
--- NOTE | 2021-10-30 13:15 | CT_ITS ---
FINAL REPORT TECHNIQUE: Axial CT images of the abdomen and pelvis were obtained before and after the administration of IV contrast. Oral contrast was administered.This study was performed with techniques to keep radiation doses as low as reasonably achievable (ALARA). Individualized dose reduction techniques using automated exposure control or adjustment of mA and/or kV according to the patient''s size were employed. CLINICAL HISTORY: BLOOD IN URINE, HEMATURIA, UNSPECIFIED FINDINGS: Abdomen: There is mild bibasilar atelectasis. The heart is normal in size. There is a small cyst in the right hepatic lobe. The gallbladder is present. The spleen is unremarkable. No adrenal masses present. The pancreas has an unremarkable appearance. The kidneys enhance normally. The aorta is normal in caliber. There is no free fluid or adenopathy. No mass or abnormal fluid collection is seen. Precontrast images demonstrate no evidence of nephrolithiasis. Pelvis: The appendix is normal. There is mild nonspecific bladder wall thickening which is likely inflammatory. No inflammatory process is seen. There is no evidence of mass or adenopathy. There is no evidence of bowel obstruction. IMPRESSION: Mild nonspecific bladder wall thickening is likely inflammatory. Reviewed, Interpreted and Dictated by Corky Cervantes III, MD Transcribed by Dominik Wolff Authenticated by Corky Cervantes III, MD on 10/30/2021 03:26:36 PM [facility]
[2021-10-30 13:34] LABS: Blood Urea Nitrogen 17 mg/dl (7-17); Estimated Glomerular Filt Rate 63 ml/min (>60); GFR (African American) 76 ML/MIN (>60)
== END ==
PROVIDERS: PCP Internal Medicine Adolescent Medicine; Visit Provider Urology
DX: R31.9 Hematuria, unspecified (principal)
CPT/HCPCS: 36415; 74178; 82565; 84520; Q9967

== ENCOUNTER → 2021-12-03 06:30 | Outpatient (CLI) | payer OTHER, SELFPAY | PROVIDERS: PCP Internal Medicine Adolescent Medicine; Visit Provider Urology | DX: Z01.818 Encounter for other preprocedural examination (principal); Z11.52 Encounter for screening for COVID-19 | CPT/HCPCS: C9803; U0003; U0005 ==

== ENCOUNTER 2021-12-28 11:50 | Emergency (ER) | payer OTHER, SELFPAY ==
[2021-12-28 14:29] VITALS: BP 0/0; PULSE 0; RESP 0; TEMP -17.7; TEMP 0
== END 2021-12-28 14:27 | disposition left against medical advice (07) ==
LOC: UTC 11:54
PROVIDERS: Emergency Provider Nurse Practitioner Family; PCP Internal Medicine Adolescent Medicine
DX: Z53.21 Procedure and treatment not carried out due to patient leaving prior to being seen by health care provider (principal)

== ENCOUNTER 2022-02-02 20:04 | Outpatient (CLI) | payer OTHER, SELFPAY ==
[2022-02-02 20:04] VITALS: BP 110/78; PULSE 70; RESP 18; TEMP 36.7; O2SAT 99
[2022-02-02 20:09] VITALS: BMI 30.9
== END 2022-02-02 20:12 | disposition home or self-care (01) ==
LOC: INF 20:05
PROVIDERS: PCP Internal Medicine Adolescent Medicine; Visit Provider Emergency Medicine
DX: L23.7 Allergic contact dermatitis due to plants, except food (principal)

== ENCOUNTER → 2022-04-10 08:02 | Outpatient (POV) | payer OTHER, SELFPAY | PROVIDERS: Visit Provider Dermatology | DX: Z00.00 Encounter for general adult medical examination without abnormal findings (principal) ==

== ENCOUNTER → 2022-06-05 09:51 | Outpatient (CLI) | payer OTHER, SELFPAY ==
--- NOTE | 2022-06-05 09:51 | MM_ITS ---
PROCEDURE INFORMATION: Exam: MG Bilateral Screening 3D Mammography Exam date and time: 06/05/2022 9:44 AM Age: 67 years old Clinical indication: Screening examination TECHNIQUE: Imaging protocol: Bilateral Screening tomosynthesis and 2D mammography including computer-aided detection (CAD) when performed. COMPARISON: 1. MG MM DIG SCREENING MAMM BI W/CAD 05/30/2021 8:31 AM 2. MG MM DIG SCREENING MAMM BI W/CAD 05/17/2020 3:51 PM FINDINGS: MAMMOGRAPHY: Breast composition: The breasts are almost entirely fatty. Mass: None. Architectural distortion: None. Calcifications: No suspicious calcifications. Asymmetric density: None. Skin thickening: None. Axillary adenopathy: None. IMPRESSION: No mammographic evidence of malignancy. Annual screening is recommended unless otherwise clinically indicated. ASSESSMENT: BI-RADS Category 1: Negative
== END ==
PROVIDERS: PCP Internal Medicine Adolescent Medicine; Visit Provider Nurse Practitioner Obstetrics & Gynecology
DX: Z12.31 Encounter for screening mammogram for malignant neoplasm of breast (principal)
CPT/HCPCS: 77063; 77067

== ENCOUNTER → 2022-07-11 09:33 | Outpatient (CLI) | payer OTHER, SELFPAY ==
[2022-07-11 10:20] LABS: Basophils # 0.1 K/mm3 (0-0.2); Basophils % 0.9 % (0.1-2.0); Eosinophils # 0.2 K/mm3 (0.0-0.4); Eosinophils % 2.6 % (0.1-12.0); Hematocrit 43.7 % (37.0-47.0); Hemoglobin 13.3 g/dL (12.2-16.2); Lymphocytes # 1.8 K/mm3 (0.7-4.5); Lymphocytes % 31.8 % (10-50); Mean Corpuscular HGB Conc 30.4 g/dL (31.8-35.4); Mean Corpuscular Hemoglobin 31.5 pg (27.0-31.2); Mean Corpuscular Volume 103.7 fl (81-99); Mean Platelet Volume 8.5 fl (7.4-10.4); Monocytes # 0.4 K/mm3 (0.1-1.0); Monocytes % 6.7 % (1.7-9.3); Neutrophils # 3.3 K/mm3 (1.8-7.8); Platelet Count 308 K/mm3 (142-424); Red Blood Count 4.22 M/mm3 (4.20-5.40); Red Cell Distribution Width 12.5 % (11.5-17.5); White Blood Count 5.7 K/mm3 (4.8-10.8)
[2022-07-11 12:27] LABS: Alanine Aminotransferase 22 U/L (12-78); Albumin Level 3.8 g/dl (3.5-5.0); Albumin/Globulin Ratio 1.5 (1.1-1.8); Alkaline Phosphatase 129 U/L (38-126); Anion Gap 10.5 mEq/L (5-15); Aspartate Amino Transferase 31 U/L (14-36); Bilirubin,Total 0.5 mg/dl (0.2-1.3); Blood Urea Nitrogen 17 mg/dl (7-17); Calcium 9.2 mg/dl (8.4-10.2); Carbon Dioxide 31 mmol/L (22.0-30.0); Chloride 104 mmol/L (98-107); Chol/HDL Ratio 2.5 (1-3.5); Cholesterol 188 mg/dl (140-200); Estimated Glomerular Filt Rate 72 ml/min (>60); GFR (African American) 87 ML/MIN (>60); Globulin 2.6 g/dL (1.3-3.2); Glucose 95 mg/dl (74-100); HDL Cholesterol 74 mg/dl (40-60); Magnesium 2.1 mg/dl (1.6-2.3); Potassium 4.5 mmoL/L (3.5-5.1); Sodium 141 mmol/L (136-145); Total Protein,Serum 6.4 g/dl (6.3-8.2); Triglycerides 75 mg/dl (30-150); VLDL Cholesterol 15 mg/dL (0-40)
[2022-07-11 12:38] LABS: Direct LDL Cholesterol 86.39 mg/dL (100-129)
[2022-07-11 12:57] LABS: Thyroid Stimulating Hormone 0.55 uIU/mL (0.465-4.68)
== END ==
PROVIDERS: PCP Internal Medicine Adolescent Medicine; Visit Provider Internal Medicine Adolescent Medicine
DX: R00.2 Palpitations (principal); E03.9 Hypothyroidism, unspecified; K21.9 Gastro-esophageal reflux disease without esophagitis
CPT/HCPCS: 36415; 80053; 80061; 83735; 84443; 85025

== ENCOUNTER 2022-08-01 10:32 | Emergency (ER) | payer OTHER, SELFPAY ==
[2022-08-01 11:32] VITALS: BMI 32.2
[2022-08-01 11:45] LABS: Influenza A, PCR Not Detected (NotDetected); Influenza B, PCR Not Detected (NotDetected)
[2022-08-01 11:59] VITALS: BP 132/63; PULSE 82; RESP 18; TEMP 37.1; O2SAT 98; BMI 32.2
[2022-08-01 12:04] VITALS: BP 132/63; PULSE 82; RESP 16; TEMP 36.8; O2SAT 97
[2022-08-01 12:10] LABS: Coronavirus 19, PCR Detected (NotDetected)
--- NOTE | 2022-08-01 12:17 | EXP.UTC ---
Discharge Plan Disposition Patient Disposition: Home, Self-Care Condition: Good Prescriptions Prescriptions: New methylprednisolone [Medrol (Amado)] 4 mg tablets,dose pack See Rx Instructions .Route .COMPLEX 6 Days Qty: 21 0RF Rx Instructions: taper pack; No Action metoprolol succinate 50 mg tablet extended release 24 hr 50 mg PO Label Comments: TAKE ONE TABLET BY MOUTH EVERY DAY levothyroxine 75 MCG tablet 75 mcg PO DAILY Referrals Follow up/Referrals: John Calles MD [Primary Care Provider] - See instructions Activity Restrictions/Add. Instructions Additional Instructions/Restrictions: If your symptoms get worse and you decide about Paxlovid call and discuss with your Family Doctor *Monitor Temp, Over the counter Motrin or Tylenol as directed/as needed Tylenol every 4 hours and Motrin every 6 hours (as long as your family doctor has told you that you can take it) for fever or pain. and straight to ER if unable to lower temp less than 101.0 after medication given *Warm salt water gargles may help to soothe the throat *Throat Lozenges? *Warm fluids like tea with honey may help to soothe the throat? *Sleep elevated *Humidifier/Vaporizer Make sure that your drinking plenty of fluids to keep yourself hydrated Follow up IMMEDIATELY for new or worsening symptoms or no Noticeable improvement over the next 48-72 hours. 911 for difficulty breathing or swallowing Clinical Impressions Clinical Impression: COVID-19 Stand Alone Forms Stand Alone Forms: Work/School Release Instructions Patient Instructions: Coronavirus Disease 2019 Discharge ED Provider: Sylvie Boss [facility] General Stated complaint: sore throat, cough, congestion Mode of Arrival: Ambulatory Source of Information: Patient Limitations: No Limitations Time Seen by Provider: 08/01/22 12:17 Description of Symptoms (Recalled from Triage Doc. by RN): t c/o positive home covid test, sore throat, asinus congestion, left ear pain cough and lethargy since saturday HEENT Symptoms (Recalled from RN notes): Yes Resp Symptoms (Recalled from RN notes): Yes Skin Symptoms (Recalled from RN notes): No MS Symptoms (Recalled from RN notes): No Functional Status (Recalled from RN notes): na History of Present Illness Provider Complaint: Patient states that she started several days ago with sinus pain and pressure that is worse on the left side States that her left ear feels stopped up and pressure in her sinuses behind her left eye States that last night she was feeling worse and today still having symptoms so she took a home COVID test and it was positive so she came in to get checked out Related Data Home Medications Medication Instructions Recorded Confirmed levothyroxine 75 mcg tablet 75 mcg PO DAILY thyroid 11/04/18 07/09/22 metoprolol succinate 50 mg 50 mg PO 07/30/22 07/30/22 tablet,extended release 24 hr Previous Rx's Medication Instructions Recorded methylprednisolone 4 mg tablets in See Rx Instructions .Route 08/01/22 a dose pack (Medrol (Amado)) .COMPLEX 6 days #21 tabs Allergies Allergy/AdvReac Type Severity Reaction Status Date / Time No Known Allergies Allergy Verified 07/30/22 14:24 Worker's Comp Is this a Worker's Comp case?: No PFSH PFSH Social History Smoking Status: Never smoker alcohol intake: never substance use type: denies use current occupational status: employed Travel in the last 8 weeks: None household members: family housing: house caffeine: Yes ROS Obtained: Yes All systems reviewed & no additional complaints except as documented and Yes Systems reviewed as appropriate & no additional complaints except as documented Constitutional Constitutional: Reports system reviewed and no additional complaints, except as documented, Reports as per HPI, Reports body ache, Reports chills and Repor
[2022-08-01 20:48] LABS: UTC Strep Screen (Rapid) Negative (Negative)
== END 2022-08-01 12:39 | disposition home or self-care (01) ==
PROVIDERS: Emergency Provider Nurse Practitioner; PCP Internal Medicine Adolescent Medicine
DX: U07.1 COVID-19 (principal); J02.9 Acute pharyngitis, unspecified; H92.02 Otalgia, left ear; R05.9 Cough, unspecified; R51.9 Headache, unspecified; R53.81 Other malaise; Z79.52 Long term (current) use of systemic steroids; Z79.899 Other long term (current) drug therapy
CPT/HCPCS: 87880; 99213; C9803; G0463; U0003; U0005

== ENCOUNTER → 2022-08-16 10:48 | Outpatient (CLI) | payer OTHER, SELFPAY ==
--- NOTE | 2022-08-16 10:53 | XR_ITS ---
FINAL REPORT CLINICAL HISTORY: TNA FINDINGS: 3 views of the right foot were obtained. There is no acute fracture or dislocation. There is a small to moderate plantar spur. There is a minimal accessory navicular. The joint spaces are intact. The soft tissues are unremarkable. IMPRESSION: No acute process. Reviewed, Interpreted and Dictated by Vargas Lisa MD Transcribed by Dominik Wolff Authenticated and [facility]
--- NOTE | 2022-08-16 10:53 | XR_ITS ---
FINAL REPORT CLINICAL HISTORY: TNA COMPARISON: April 2020 FINDINGS: 3 views of the right foot were obtained. There is no acute fracture or dislocation. There is a small to moderate plantar spur. The joint spaces are intact. The soft tissues are unremarkable. IMPRESSION: No acute process. Reviewed, Interpreted and Dictated by Vargas Lisa MD Transcribed by Dominik Wolff Authenticated and [facility]
== END ==
PROVIDERS: PCP Internal Medicine Adolescent Medicine; Visit Provider Podiatrist
DX: M79.671 Pain in right foot (principal); M79.672 Pain in left foot; L60.0 Ingrowing nail
CPT/HCPCS: 73630

== ENCOUNTER → 2023-07-24 08:29 | Outpatient (CLI) | payer MEDICARE, OTHER, SELFPAY ==
--- NOTE | 2023-07-24 08:32 | MM_ITS ---
PROCEDURE INFORMATION: Exam: MG Bilateral Screening 3D Mammography Exam date and time: 07/24/2023 8:20 AM Age: 68 years old Clinical indication: Screening examination TECHNIQUE: Imaging protocol: Bilateral Screening tomosynthesis and 2D mammography including computer-aided detection (CAD) when performed. COMPARISON: 1. MG MM DIG SCREENING MAMM BI W/CAD 06/05/2022 9:44 AM 2. MG MM DIG SCREENING MAMM BI W/CAD 05/30/2021 8:31 AM FINDINGS: MAMMOGRAPHY: Breast composition: The breasts are almost entirely fatty. Mass: None. Architectural distortion: None. Calcifications: No suspicious calcifications. Asymmetric density: None. Skin thickening: None. Axillary adenopathy: None. IMPRESSION: No mammographic evidence of malignancy. Annual screening is recommended unless otherwise clinically indicated. ASSESSMENT: BI-RADS Category 1: Negative
== END ==
PROVIDERS: PCP Internal Medicine Adolescent Medicine; Visit Provider Nurse Practitioner Obstetrics & Gynecology
DX: Z12.31 Encounter for screening mammogram for malignant neoplasm of breast (principal)
CPT/HCPCS: 77063; 77067

== ENCOUNTER → 2023-07-30 10:47 | Outpatient (CLI) | payer MEDICARE, OTHER, SELFPAY ==
[2023-07-30 11:29] LABS: Basophils # 0.1 K/mm3 (0-0.2); Eosinophils # 0.1 K/mm3 (0.0-0.4); Eosinophils % 1.9 % (0.1-12.0); Hematocrit 39.6 % (37.0-47.0); Hemoglobin 13.4 g/dL (12.2-16.2); Lymphocytes # 2.3 K/mm3 (0.7-4.5); Lymphocytes % 37.3 % (10-50); Mean Corpuscular HGB Conc 33.9 g/dL (31.8-35.4); Mean Corpuscular Hemoglobin 34.2 pg (27.0-31.2); Mean Corpuscular Volume 100.9 fl (81-99); Mean Platelet Volume 9.1 fl (7.4-10.4); Monocytes # 0.3 K/mm3 (0.1-1.0); Monocytes % 5.7 % (1.7-9.3); Neutrophils # 3.3 K/mm3 (1.8-7.8); Platelet Count 267 K/mm3 (142-424); Red Blood Count 3.93 M/mm3 (4.20-5.40); Red Cell Distribution Width 12.8 % (11.5-17.5)
[2023-07-30 12:15] LABS: Alanine Aminotransferase 17 U/L (12-78); Albumin Level 4.1 g/dl (3.5-5.0); Alkaline Phosphatase 82 U/L (38-126); Anion Gap 10.5 mEq/L (5-15); Aspartate Amino Transferase 29 U/L (14-36); Bilirubin,Direct 0.1 mg/dl (0.0-0.4); Bilirubin,Indirect 0.5 mg/dL (0.0-0.9); Bilirubin,Total 0.6 mg/dl (0.2-1.3); Bilirubin,Unconjugated 0.4 mg/dL (0.0-1.1); Blood Urea Nitrogen 9 mg/dl (7-17); Calcium 9.7 mg/dl (8.4-10.2); Carbon Dioxide 28 mmol/L (22.0-30.0); Chloride 107 mmol/L (98-107); Cholesterol 191 mg/dl (140-200); Estimated Glomerular Filt Rate 83 ml/min (>60); GFR (African American) 101 ML/MIN (>60); Glucose 98 mg/dl (74-100); HDL Cholesterol 64 mg/dl (40-60); Potassium 4.5 mmoL/L (3.5-5.1); Sodium 141 mmol/L (136-145); Total Protein,Serum 6.8 g/dl (6.3-8.2); Triglycerides 74 mg/dl (30-150); VLDL Cholesterol 15 mg/dL (0-40)
[2023-07-30 12:26] LABS: Direct LDL Cholesterol 96.02 mg/dL (100-129)
[2023-07-30 12:32] LABS: Free T4 (Free Thyroxine) 1.56 ng/dl (0.78-2.19)
[2023-07-30 12:46] LABS: Thyroid Stimulating Hormone 2.13 uIU/mL (0.465-4.68)
== END ==
PROVIDERS: PCP Internal Medicine Adolescent Medicine; Visit Provider Internal Medicine
DX: I10 Essential (primary) hypertension (principal); R06.00 Dyspnea, unspecified; R06.83 Snoring; R40.0 Somnolence; R91.8 Other nonspecific abnormal finding of lung field; R94.31 Abnormal electrocardiogram [ECG] [EKG]
CPT/HCPCS: 36415; 80048; 80061; 80076; 83735; 84439; 84443; 85025

== ENCOUNTER → 2023-08-02 06:16 | Outpatient (CLI) | payer MEDICARE, OTHER, SELFPAY ==
--- NOTE | 2023-08-02 | CA_ITS ---
APPROVED REPORT Exam: Exercise Treadmill Technologist: Vanessa Lai, Ht: 5 ft 4 in Wt: 188 lbs BSA: 1.91 m2 HR: 64 bpm BP: 162/63 mmHg Rhythm: NSR Medical History Medical History: HTN Medications: Levothyroxine,,,,, Carvedilol,,,,, Vit D3,,,,, Vit B,,,,, Allergies: No known drug allergies Cardiac Risk Factors: HTN, FHX of CAD Stress Test Details Test: José Manuel HR Resting HR: 72 bpm Max Heart Rate (APMHR): 153 bpm Max HR Achieved: 144 bpm Target HR (85% APMHR): 130 bpm % of APMHR: 94 Recovery HR: 80 bpm HR response to stress: Normal HR response to stress BP Resting BP: 162.0/79 mmHg Max BP: 182/66 mmHg Recovery BP: 165.0/82.0 mmHg BP response to stress: Normal blood pressure response to stress. ECG Resting ECG: NSR Stress ECG: < 0.[address] depression Arrhythmia: PACs Recovery ECG: Return to baseline within 3 minutes of recovery Recovery Arrhythmia: PACs Clinical Exercise duration: 09:21 min Highest Stage Achieved: Exercise capacity: 10.1 METs Overall Exercise Capacity for Age: Average Stress ECG Conclusion The patient exercised for a total of 9 minutes, 21 seconds. She achieved 10.1 METS. She has average exercise capacity compared to age and sex matched peers. She has normal HR and BP response to exercise. MAX HR: 144 % OF PM: 94% MAX BP: 182/66 METS: 10.1 TEST STOPPED DUE TO: SOA PT HAD MILD CHEST TIGHTNESS RARE PAC 0.[address] DEPRESSION CONCLUSION: UNREMARKABLE ECG STRESS TEST AT PEAK STRESS MYOVIEW IMAGES REPORTED SEPARATELY Test Summary REST . . . . . . . Standing REST . . . . . . . Sitting REST 05:05 0.0 0.0 72 . 162/ 79 . . Stage 1 01:00 10.0 1.7 91 . . . . Stage 1 02:00 10.0 1.7 96 . . . . Stage 1 03:00 10.0 1.7 100 . 168/ 70 . . Stage 2 01:00 12.0 2.5 112 . . . . Stage 2 02:00 12.0 2.5 117 . . . . Stage 2 03:00 12.0 2.5 107 . 182/ 66 . . Stage 3 01:00 14.0 3.4 129 . . . . Stage 3 02:00 14.0 3.4 135 . . . . Stage 3 03:00 14.0 3.4 138 . . . . Stage 4 00:21 16.0 4.2 142 . . . Stop exercise at 09:21 RECOVERY 01:00 0.0 0.0 117 . . . . RECOVERY 02:00 0.0 0.0 87 . . . . RECOVERY 03:00 0.0 0.0 82 . 164/ 71 . . RECOVERY 04:00 0.0 0.0 99 . 167/ 76 . . RECOVERY 05:00 0.0 0.0 79 . 167/ 76 . . RECOVERY 06:00 0.0 0.0 85 . 167/ 76 . . RECOVERY 06:31 0.0 0.0 90 . 165/ 82 . . Electronically signed by : Jannie Wade MD 08/07/2023 14:22:59
--- NOTE | 2023-08-02 06:21 | NM_ITS ---
APPROVED REPORT Exam: Nuclear Stress Test Indication: soa..palpiations..syncope..fatigue Patient Location: Outpatient Stress Tech: Vanessa Lai NE Tech:Edwige PettyKALEY RT(R)(N) Ht: 5 ft 4 in Wt: 183 lbs Bra Size: 40c HR: 72 bpm BP: 162/79 mmHg BSA: 1.88 m2 Rhythm: NSR TID: 0.97 BMI: 31.4 History: soa..palpiations..syncope..fatigue Procedure: Patient exercised on José Manuel protocol 9:21 minutes and sec, resting heart rate 72 bpm, resting blood pressure 162/79 mmHg, with exercise maximum heart rate achived was 144 bpm which is 94 % of the maximum predicted heart rate and blood pressure was 182/66 mmHg. Test was stopped due to fatigue/soa. Patient has Average exercise capacity, achieved 10.1 METs of workload on treadmill, the blood pressure response to exercise was normal. Cardiac Stress and Resting SPECT Images: Cardiac Stress and Resting SPECT images were obtained using technetium 99m Myoview 31.8 mCi stress and 10.90 mCi at rest. Resting and stress imaging in supine and prone positions demonstrate no evidence of fixed or reversible perfusion defects. Gated imaging demonstrates normal global and regional LV systolic function. LVEF is calculated at 71%. Conclusion: No evidence of fixed or reversible perfusion defects. Gated imaging demonstrates normal global and regional LV systolic function. LVEF is calculated at 71%. Electronically signed by : Jannie Wade MD 08/07/2023 14:25:03
--- NOTE | 2023-08-02 06:21 | CT_ITS ---
FINAL REPORT TECHNIQUE: Axial imaging of the chest was obtained without contrast. Reformatted images were also obtained and reviewed.This study was performed with techniques to keep radiation doses as low as reasonably achievable, (ALARA). Individualized dose reduction technique using automated exposure control or adjustment of mA and/or kV according to the patient's size were employed. CLINICAL HISTORY: dyspnea/abnl ecg/pulmonary nodules COMPARISON: 08/28/2019 FINDINGS: There is no axillary adenopathy. There are small, stable mediastinal lymph nodes. Heart size is normal. There is mild scarring. A small right pleural effusion is seen. No suspicious infiltrate or nodule is identified on lung window images. Limited imaging of the upper abdomen demonstrates a less than 1 cm right hepatic mass which is stable from prior exam and may represent a cyst. IMPRESSION: Small right pleural effusion. Reviewed, Interpreted and Dictated by Corky Cervantes III, MD Transcribed by Jeane Delcid Authenticated and [facility]
--- NOTE | 2023-08-02 08:35 | CA_ITS ---
APPROVED REPORT EXAM: Comprehensive 2D, Doppler, and color-flow Echocardiogram Test Department Helper: Radha Nam, RCS, RVS Ht: 5 ft 4 in Wt: 188lbs BSA: 1.91 BP: 174/64 mmHg Indications: HTN, NAUSEA, CP, ABN EKG, SOA 2D Dimensions LVDd 3.02 cm Aortic Root 2.42 cm Left Atrium 3.12 cm LVOT 1.98 cm (M/F) 1.5-2.5 M-Mode Dimensions RVDd 1.88 cm (0.9-2.6) LA Diam 3.11 cm (1.9-4.0) LVDd 3.02 cm (3.5-5.7) Ao Diam 2.51 cm (2.0-3.7) LVDs 2.15 cm (3.5-5.7) IVSd 0.94 cm (0.6-1.1) PWd 0.84 cm (0.6-1.1) EF (Teich) 57.00% EPSs 0.37 cm FS 28.80% EDV (Teich) 35.60 mL TAPSE 1.98 (<1.7) ESV (Teich) 15.30 mL LV Diastology E Decel Time 200.00 (160-240 msec) E/A Ratio 1.34 MED E' 10.40 (< 7 cm/sec) MED A' 8.70 cm/s E'/MED E' Ratio 8.76 (>14) LAT E' 8.60 (<10 cm/sec) LAT A' 9.30 cm/s E/LAT E' Ratio 10.59 (>14) Aortic Valve LVOT Max 108.00 (70-110 cm/s) LVOT VTI 25.26 cm AoV Peak Cachorro. 130.00 (50-130 cm/s) AO Peak GR. 6.80 mmHg AO Mean GR. 3.40 (<5 mmHg) AO VTI 29.22 (18-25 cm) MUSHTAQ (VTI) 2.66 (2.5-4.5 cm2) Mitral Valve MV A Velocity 68.00 (40-130 cm/s) E/A Ratio 1.34 MV Decel. Time 200.00 (160-240 ms) Pulmonary Valve AK End VMAX 100.00 cm/s Tricuspid Valve TR P. Velocity 257.00 cm/s RAP Estimate 10.00 mmHg RVSP 36.50 mmHg Left Ventricle The left ventricle is normal size. The left ventricular systolic function is normal. The left ventricular ejection fraction is within the normal range. There is normal left ventricular wall thickness. There is normal LV segmental wall motion. The left ventricular diastolic function is normal. LVEF is 60%. Right Ventricle The right ventricle is normal size. The right ventricular systolic function is normal. Atria The left atrium size is normal. The right atrium size is normal. There is no Doppler evidence of interatrial shunt. Aortic Valve The aortic valve is mildly thickened. There is no aortic valvular stenosis. Trace aortic regurgitation. Mitral Valve The mitral valve is normal in structure. Trace mitral regurgitation. Tricuspid Valve The tricuspid valve leaflets are thin and pliable. Mild tricuspid regurgitation. RVSP is 25-30 mmHg. Pulmonic Valve The pulmonary valve is normal in structure. Trace pulmonic regurgitation. Great Vessels The aortic root is normal in size. The ascending aorta is normal in size. The IVC is not well visualized. Pericardium There is no pericardial effusion. Other Information Study Quality: Fair Conclusion Normal biventricular systolic function. No significant valvular stenosis or regurgitation. Electronically signed by : Jannie Wade MD 08/04/2023 22:06:08
== END ==
LOC: RAD 06:16
PROVIDERS: PCP Internal Medicine Adolescent Medicine; Visit Provider Internal Medicine
DX: R06.00 Dyspnea, unspecified (principal); R91.8 Other nonspecific abnormal finding of lung field; R94.31 Abnormal electrocardiogram [ECG] [EKG]
CPT/HCPCS: 71250; 78452; 93017; 93018; 93306; A9502

== ENCOUNTER → 2023-09-05 12:51 | Outpatient (CLI) | payer MEDICARE, OTHER, SELFPAY | LOC: SL 12:52 | PROVIDERS: PCP Internal Medicine; Visit Provider Internal Medicine | DX: R06.00 Dyspnea, unspecified (principal); R94.31 Abnormal electrocardiogram [ECG] [EKG]; R06.83 Snoring; R40.0 Somnolence; I10 Essential (primary) hypertension ==

== ENCOUNTER → 2023-12-02 20:21 | Outpatient (CLI) | payer MEDICARE, OTHER, SELFPAY | LOC: SL 20:24 | PROVIDERS: PCP Internal Medicine Adolescent Medicine; Visit Provider Internal Medicine | DX: G47.33 Obstructive sleep apnea (adult) (pediatric) (principal); G47.36 Sleep related hypoventilation in conditions classified elsewhere; R06.83 Snoring | CPT/HCPCS: 95810 ==

== ENCOUNTER 2023-12-05 12:41 | Outpatient (CLI) | payer MEDICARE, OTHER, SELFPAY ==
[2023-12-05] MEDS: ALBUTEROL 0.083% 2.5 MG/3 ML NEB IH (13:58)
== END 2023-12-05 23:59 ==
LOC: RT 12:42
PROVIDERS: PCP Internal Medicine Adolescent Medicine; Visit Provider Internal Medicine Adolescent Medicine
DX: R06.09 Other forms of dyspnea (principal)
CPT/HCPCS: 94060; 94726; 94729

== ENCOUNTER 2024-04-30 08:57 | Outpatient (CLI) | payer MEDICARE, OTHER, SELFPAY ==
[2024-04-30 10:51] LABS: Thyroid Stimulating Hormone 3.13 uIU/mL (0.465-4.68)
[2024-04-30 10:58] LABS: Alanine Aminotransferase 14 U/L (12-78); Albumin Level 3.9 g/dl (3.5-5.0); Albumin/Globulin Ratio 1.4 (1.1-1.8); Alkaline Phosphatase 90 U/L (38-126); Anion Gap 11.7 mEq/L (5-15); Aspartate Amino Transferase 23 U/L (14-36); Bilirubin,Total 0.7 mg/dl (0.2-1.3); Blood Urea Nitrogen 18 mg/dl (7-17); Calcium 9.6 mg/dl (8.4-10.2); Carbon Dioxide 26 mmol/L (22.0-30.0); Chloride 108 mmol/L (98-107); Estimated Glomerular Filt Rate 55 ml/min (>60); GFR (African American) 67 ML/MIN (>60); Globulin 2.8 g/dL (1.3-3.2); Glucose 99 mg/dl (74-100); Potassium 4.7 mmoL/L (3.5-5.1); Sodium 141 mmol/L (136-145); Total Protein,Serum 6.7 g/dl (6.3-8.2)
== END 2024-04-30 23:59 | disposition home or self-care (01) ==
LOC: LAB 08:58
PROVIDERS: PCP Internal Medicine Adolescent Medicine; Visit Provider Internal Medicine Adolescent Medicine
DX: E03.9 Hypothyroidism, unspecified (principal)
CPT/HCPCS: 36415; 80053; 84443

== ENCOUNTER 2024-05-27 15:00 | Outpatient (RCR) | payer MEDICARE, OTHER, SELFPAY ==
--- NOTE | 2024-05-11 09:29 | HMH.PTOPEV ---
PT Outpatient Evaluation Rehab PT Outpatient Evaluation Start: 05/11/24 08:05 Freq: Status: Active Protocol: Document 05/11/24 08:41 ALEX (Rec: 05/11/24 09:29 ALEX [id number]) E-signed By Terrell Mackey, PT Outpatient Therapy Subjective History Subjective History Patient Liliana House is a 69 yof presenting to outpatient physical therapy with the chief complaint of L side LE pain secondary to sciatic nerve involvement. She has no significant past medical history at this time, patient has previously had PT for a prior shoulder injury and greatly benefited. Patient stated that her L LE pain began around spring (October) of this year and has been constant for a while now. Patient states that her and herself like to walk a lot, and thinks her injury stemmed from trying to keep up with him. She is concerned because her and her spouse have a trip in June that requires her to sit for an extended period of time on a plane. Patient has noticed that she is unable to sit or stand for long periods of time currently. Patient's goal for physical therapy is to be pain free and be able to do the things she wants. New diagnosis of cancer in past 12 No months? Chief Complaint Pain,Stiff Symptom Type Ache Symptoms Relieved By Rest/Positioning Symptoms Aggravated By Sitting,Standing,Physical Activity,Walking Prior Functional Limitations None Current Functional Limitations Driving,Sleeping,Standing, Sitting,Walking,Stairs Symptom Description Constant but Variable Level of pain today (0-10) 4 Pain scale - at its worst (0-10) 8 Hip/Knee Eval Gait Observation General Gait Pattern Observation Antalgic Gait Assistive Device Assistive Devices None / NA Palpation Tenderness left Hip Palpation Findings Tenderness,Trigger Point MMT bilateral Hip Flexion Strength Grade 3+ Fair+ Hip Abduction Strength Grade 3+ Fair+ Hip Adduction Strength Grade 3+ Fair+ Knee Extension Strength Grade 4 Good Knee Flexion Strength Grade 4 Good ROM Hip Flexion w/Knee Extended Active Range 100 of Motion (degrees) Hip Abduction Active Range of Motion ( 35 degrees) Hip Extension Active Range of Motion ( 12 degrees) Hip ROM Limitations Tightness on Left Special Tests Hip Piriformis Test Negative Right,Positive Left Sciatic Nerve Tension Test Negative Right,Positive Left Oswestry Index Section 1 Pain Intensity The pain comes and goes and is moderate Section 2 Personal Care (Washing,Dresing) change my way of washing or dressing in order to avoid pain Section 3 Lifting I can only lift very light weights at most Section 4 Walking I cannot walk more than 1/2 mile without increasing pain Section 5 Sitting Pain prevents me from sitting for more than 1/2 hour Section 6 Standing I have some pain on standing, but it does not increase with time Section 7 Sleeping I get pain in bed, but it does not prevent me from sleeping well Section 8 Social Life My social life is normal but increases the degree of pain Section 9 Traveling I get extra pain while traveling, but it does not compel me to seek al Section 10 Changing Degreee of Pain My pain fluctuates, but overall is definitely getting better Score and Risk Level Oswestry Sc 19 Oswestry Risk Level Moderate Disability Miscellaneous Dx PT Eval Objective Objective Patient has a lot of LE tightness experienced with SLR and ROHAN, in general patient was very stiff throughout LE movements. Outpatient Therapy Assessment Impairments Problems/Impairmments Palpation Tenderness,Impaired Range of Motion,Impaired Strength,Impaired Walking, Impaired Standing,Impaired Sitting,Impaired Driving, Impaired Stair Climbing, Subjective C/O Pain Prognosis Rehab Potential Good Comment Patient is an excellent candidate for skilled PT at this time to address her LE strength impairments in addition to her pain levels. She will significantly benefit to improve her limitations and improve her QOL. Short Term Goals Number of Weeks 4 Decreased Palpation Tenderness Yes: PPT: over piriformis from 4/5 to 3/5 Increase Range of Motion Yes: Hip AROM 5 degrees grossly Increase Strength Yes: LE MMT 3/5 to 4/5 Increase Ability to Walk Yes: 10 min with pain level of 4/10 or less Improve Oswestry Score Yes: Score: 17 or less Decrease Subjective C/O Pain Yes: at worse from 8/10 to 6/ 10 Patient to be Ind w/ HEP Yes Jail Goals Number of Weeks 6 Decreased Palpation Tenderness Yes: PPT: over piriformis from 3/5 to 2/5 Increase Range of Motion Yes: Hip AROM functional range Increase Strength Yes: LE MMT 4/5 to 5/5 Increase Ability to Walk Yes: 20 min with pain level of 3/10 or less Improve Oswestry Score Yes: Score: 10 or below Decrease Subjective C/O Pain Yes: at rest from 4/10 to 2/10 or below Patient to be Ind w/ Advanced HEP Yes Outpatient Therapy Plan of Care Treatment Plan May Include Therapeutic Exercise Including Home Yes Exercise Program Manual Therapy Techniques Yes Neuromuscular Re-education Yes Therapeutic Activities to Return to Yes Previous Functional/Work Level ADL/Self Care Education Yes Mechanical Traction Yes Dry Needling Yes Thermal Modalities Yes Electrical Stimulation Yes Iontophoresis Yes Vasopneumatic Compression Pump Yes Eval/Re-Eval Yes Frequency Times per week 1-2 Duration Number of Weeks 4-6 Addendums This patient is a candidate for social No or vocational rehab? Patient/Guardian verbally acknowledges Yes understanding of treatment program and consents to further treatment? Patient/Guardian verbally acknowledges Yes understanding of diagnosis, prognosis and goals for treatment? Eval Complexity PT Charges 95524 - High Complexity Shoulder/Elbow Eval Shoulder Objective Measurements Elbow Objective Measurements PHYSICIAN CERTIFICATION: I certify the specified therapy services for Liliana House are required, authorized, and reviewed every 30 days.
== END 2024-05-27 15:05 | disposition home or self-care (01) ==
LOC: PT 15:00
PROVIDERS: Visit Provider Internal Medicine Adolescent Medicine
DX: M54.32 Sciatica, left side (principal)
CPT/HCPCS: 97014; 97110; 97163; 97530; G0283

== ENCOUNTER 2024-08-25 06:08 | Day surgery (SDC) | payer MEDICARE, OTHER, SELFPAY ==
[2024-08-21 12:01] VITALS: BMI 31.9
[2024-08-25 06:28] VITALS: BP 150/71; PULSE 69; RESP 18; TEMP 36.7; O2SAT 98
[2024-08-25] MEDS: LACTATED RINGERS 1000ML 1,000 ML 25 ML IV (06:35)
--- NOTE | 2024-08-25 06:49 | EXP.ANES.CKL ---
[facility] Disclaimer: The information contained in this section may have been updated after the patient was seen, as this information can be updated by other users. Medical History Hypertension ALEJANDRO (obstructive sleep apnea) Surgical History History of surgery H/O tubal ligation Family History Brother Family history of myocardial infarction Social History (Updated 08/25/24 @ 06:25 by Zulma Rose RN) Smoking Status: Never smoker alcohol intake: never substance use type: denies use current occupational status: employed Travel in the last 8 weeks: None household members: family housing: house caffeine: Yes [facility] Anesthesia Checklist Patient Identification Patient Identification: Arm Band and Family Structural Data Admitted From: Home Planned Operative Procedure/s: colonoscopy Consent for Planned Operative Procedure(s) Verified: Yes Verified Documents: Surgical Consent and History and Physical NPO Status Verified Time NPO: 00:00 Additional verifications Patient : No Anesthesia Reactions: No Hx Blood Transfusions: No Blood Transfusion Reaction: No Cephalosporin Allergy: No Previous Colonoscopy: Yes Airway Assessment Mallampati Score:: Class III C-Spine Mobility Assessed: Yes TMJ Mobility Assessed: Yes Dentition: Good Dentition Neurological Assessment Level of Consciousness: Awake, Alert, Appropriate and Follows Commands Hx Seizures: No Numbness or tingling in extremities: No Anesthesia Plan Anesthesia Risk discussed: Yes ASA Class: II Anesthesia Type: MAC
--- NOTE | 2024-08-25 06:54 | P.PCN_ITS ---
Procedure: Date: 08/25/24 Patient Date of :: 1955 Procedure Performed:: Colonoscopy with polypectomy Indications:: History of colon polyps Performing Provider:: Smith Casas MD Referring Provider:: . Sedation:: Monitored anesthesia care Procedure:: After informed consent was obtained the patient was taken to the endoscopy suite. Sedation ensued after the patient was transferred to the left lateral d ecubitus position. Pulse, blood pressure, and oxygen saturation were monitored throughout the procedure. Digital rectal exam revealed no significant abnormality. The colonoscope was placed in position. The entire colon was evaluated. The colonoscope was carefully removed and the patient was transferred to recovery in stable condition. Please see findings and specimens below for detail. Findings:: Bowel preparation fair to moderate Profound tortuosity (particularly sigmoid) Significant spasticity/lack of relaxation Polyp (see specimens) Specimens:: 7 mm sessile/lobulated cecal polyp (cold snare) Recommendations:: Timing of repeat colonoscopy is pending pathology will likely be between 2-3 years secondary to history of polyps, fair to moderate bowel preparation, spasticity/lack of relaxation, and profound tortuosity. The patient has undergone prior colonoscopy by Dr. Ugo Guadarrama of the gastroenterology service. The patient's next colonoscopy will likely be completed by his service. Complications:: No immediate Estimated blood obtained (mL): 1 Colonoscopy Component Colonoscopy Component Was a colonoscopy performed during today's procedure?: Yes Recommended follow up colonoscopy of at least 10 years?: No If no, follow up colonoscopy recommended in ___ years?: (See above) Reason for not recommending >/= 10 yr follow-up interval?: (See above)
[2024-08-25 06:55] VITALS: O2SAT 99
[2024-08-25 07:25] VITALS: BP 118/59; PULSE 83; RESP 16; O2SAT 95
[2024-08-25 07:35] VITALS: BP 121/62; PULSE 77; RESP 16; O2SAT 97
[2024-08-25 07:45] VITALS: BP 139/80; PULSE 74; RESP 16; O2SAT 98
[2024-08-25 07:55] VITALS: BP 152/53; PULSE 78; RESP 16; O2SAT 98
== END 2024-08-25 08:00 | disposition home or self-care (01) ==
PROVIDERS: PCP Internal Medicine Adolescent Medicine; Visit Provider Surgery
PROC: 0DJD8ZZ Inspection of Lower Intestinal Tract, Via Natural or Artificial Opening Endoscopic (ICD-10-PCS; CPT 45385; principal; 2024-08-25 07:30)
DX: D12.0 Benign neoplasm of cecum (principal); Z09 Encounter for follow-up examination after completed treatment for conditions other than malignant neoplasm; Z86.0100 Personal history of colon polyps, unspecified
CPT/HCPCS: 45385; 88305; J2405; J2704; J7120

== ENCOUNTER 2024-09-01 10:36 | Outpatient (CLI) | payer MEDICARE, SELFPAY ==
--- NOTE | 2024-09-01 10:37 | MM_ITS ---
PROCEDURE INFORMATION: Exam: MG Bilateral Screening 3D Mammography Exam date and time: 09/01/2024 10:35 AM Age: 69 years old Clinical indication: Screening examination TECHNIQUE: Imaging protocol: Bilateral Screening tomosynthesis and 2D mammography including computer-aided detection (CAD) when performed. COMPARISON: 1. MG MM DIG SCREENING MAMM BI W/CAD 07/24/2023 8:20 AM 2. MG MM DIG SCREENING MAMM BI W/CAD 06/05/2022 9:44 AM FINDINGS: MAMMOGRAPHY: Breast composition: There are scattered areas of fibroglandular density. Mass: None. Architectural distortion: None. Calcifications: No suspicious calcifications. Asymmetric density: None. Skin thickening: None. Axillary adenopathy: None. IMPRESSION: No mammographic evidence of malignancy. Annual screening is recommended unless otherwise clinically indicated. ASSESSMENT: BI-RADS Category 1: Negative.
== END 2024-09-01 23:59 | disposition home or self-care (01) ==
LOC: RAD 10:37
PROVIDERS: PCP Internal Medicine Adolescent Medicine; Visit Provider Nurse Practitioner Obstetrics & Gynecology
DX: Z12.31 Encounter for screening mammogram for malignant neoplasm of breast (principal)
CPT/HCPCS: 77063; 77067

== ENCOUNTER 2024-09-18 11:05 | Emergency (ER) | payer MEDICARE, SELFPAY ==
[2024-09-18 11:15] VITALS: BP 169/91; PULSE 73; RESP 20; TEMP 36.7; O2SAT 98; BMI 32.5
[2024-09-18 11:27] LABS: Apearance,Urine Cloudy (Clear); Bilirubin,Urine Negative (Negative); Blood, Urine 1+ (Negative); Color,Urine Dark Yellow (Yellow); Glucose,Urine (UA) Negative (Negative); Ketones,Urine Negative (Negative); PH,Urine 5.5 (5.0-8.5); Protein,Urine Negative (Negative); Specific Gravity, Urine 1.005 (1.005-1.030); UTC Leukocyte Esterase,Urine Trace (Negative); UTC Nitrate,Urine Negative (Negative); Urobilinogen,Urine 0.2 EU/dl (0.2)
--- NOTE | 2024-09-18 11:29 | EXP.UTC ---
Discharge Plan Disposition Patient Disposition: Home, Self-Care Condition: Good Prescriptions Prescriptions: New nitrofurantoin monohyd/m-cryst [Macrobid] 100 mg capsule 100 mg PO Q12H 7 Days Qty: 14 0RF Rx Instructions: must administer with a meal/food phenazopyridine [Pyridium] 200 mg tablet 200 mg PO Q8H 2 Days Qty: 6 0RF No Action carvedilol 12.5 mg tablet 12.5 mg PO BID levothyroxine 75 MCG tablet 75 mcg PO DAILY Referrals Follow up/Referrals: John Calles MD [Primary Care Provider] - See instructions Activity Restrictions/Add. Instructions Additional Instructions/Restrictions: *Increase fluids. Water not Soda or Tea *Start antibiotic immediately and be sure to take as ordered for the FULL length of time although you should start to see improvement over the next 48 hours *Pyridium as needed Remember this medication will turn your urine . This is normal but it will stain what ever it gets on *You should not use Pyridium for more than 48 hours. If so , follow up with your primary physician to review urine culture and ensure that antibiotic is adequate for infection *Be SURE to follow up anytime for new or worsening symptoms with your family doctor. AND in 48 hours for urine culture results with your family doctor, if you do not have a doctor then you may call back to the [facility] for urine culture results and further treatment. We do recommend that you choose and establish care with a Primary Care Physician. ?AND follow up with them ?in 10-14 days to repeat UA to ensure infection is resolved and blood no longer present *Be sure to let your PCP know that we sent urine cultures from the [facility] so they can follow up to ensure that you area the on the correct antibiotic Call your doctor office and make appointment for 48 hours (2 days from today) ?to follow up and get the results of your urine culture and further treatment Clinical Impressions Clinical Impression: UTI (urinary tract infection) Instructions Patient Instructions: Nitrofurantoin, Phenazopyridine, DI for Urinary Tract Infection (UTI) Print Language Print Language: Kenyan Discharge ED Provider: Sylvie Boss [facility] [place] HPI General Stated complaint: poss uti Mode of Arrival: Ambulatory Source of Information: Patient Limitations: No Limitations Time Seen by Provider: 09/18/24 11:29 Description of Symptoms (Recalled from Triage Doc. by RN): PATIENT C/O BLADDER FULLNESS AND BLADDER PAIN WITH URINATION HEENT Symptoms (Recalled from RN notes): No Resp Symptoms (Recalled from RN notes): No Skin Symptoms (Recalled from RN notes): No MS Symptoms (Recalled from RN notes): No Functional Status (Recalled from RN notes): WNL History of Present Illness Provider Complaint: Patient states that she started today with feeling of urgency and frequency and having discomfort with urination States feels like it does when she has a UTI so she came in Related Data Home Medications ?Medication ?Instructions ?Recorded ?Confirmed levothyroxine 75 mcg tablet 75 mcg PO DAILY thyroid 11/04/18 09/18/24 carvedilol 12.5 mg tablet 12.5 mg PO BID 07/30/23 09/18/24 Previous Rx's ?Medication ?Instructions ?Recorded nitrofurantoin 100 mg PO Q12H 7 days #14 caps 09/18/24 monohydrate/macrocrystals 100 mg capsule (Macrobid) phenazopyridine 200 mg tablet 200 mg PO Q8H pain 2 days #6 tabs 09/18/24 (Pyridium) Allergies Allergy/AdvReac Type Severity Reaction Status Date / Time No Known Allergies Allergy Verified 09/01/24 09:54 Worker's Comp Is this a Worker's Comp case?: No [facility] Disclaimer: The information contained in this section may have been updated after the patient was seen, as this information can be updated by other users. Medical History (Updated 09/18/24 @ 11:33 by Sylvie Boss APRN) Daytime somnolence Hypertension ALEJANDRO (obstructive sleep apnea) Surgical History History of surgery bladder tuck H/O tubal ligation Family History (Updated 09/01/24 @ 10:10 by MARYELLEN Vernon) Brother Family history of myocardial infarction Mother Cancer Social History Smoking Status: Never smoker alcohol intake: never substance use type: denies use current occupational status: employed Travel in the last 8 weeks: None household members: family housing: house caffeine: Yes Have you lived/traveled outside [place] in past 30 days?: No Contact w/someone who lives/traveled outside US past 30 days?: No Exposure to someone with infectious disease in past 14 days?: No Do you have a fever (greater than 100.4 F or 38 C)?: No Have you tested positive for COVID-19: No Exposed to someone with COVID-19 in past 14 days?: No Do you have a sore throat?: No Do you have a cough?: No Do you have any weakness?: No Do you have any diarrhea?: No Are you experiencing any unusual bleeding?: No Do you have any muscle aches/pain?: No Do you have any abdominal pain?: No Are you experiencing loss of taste or smell?: No ROS Obtained: Yes All systems reviewed & no additional complaints except as documented and Yes Systems reviewed as appropriate & no additional complaints except as documented Constitutional Constitutional: Reports system reviewed and no additional complaints, except as documented, Reports as per HPI, Denies body ache, Denies chills and Denies fever(s) ENT Ears, Nose, Mouth, and Throat: Reports system reviewed and no additional complaints, except as documented and Reports as per HPI Cardiovascular Cardiovascular: Reports system reviewed and no additional complaints, except as documented and Reports as per HPI Respiratory Respiratory: Reports system reviewed and no additional complaints, except as documented and Reports as per HPI Gastrointestinal Gastrointestingal: Reports system reviewed and no additional complaints, except as documented and as per HPI; Denies abdominal pain Genitourinary Female Genitourinary: Reports system reviewed and no additional complaints, except as documented, Reports as per HPI, Reports dysuria, Reports urinary frequency and Reports urinary urgency Physical Exam General General appearance: alert and in no apparent distress Respiratory Respiratory exam: Present normal lung sounds bilaterally; Absent respiratory distress or wheezes Cardiovascular Cardiovascular exam: Present regular rate, normal rhythm and normal heart sounds Abdominal Exam Abdominal exam: Present soft and normal bowel sounds; Absent distention or tenderness Neurological Exam Neurological exam: Present alert, oriented X3 and normal gait Medical Decision Making Medical Records Screening: Per USPSTF and CDC recommendations, given the prevalence of disease in our region, it is our hospital?s policy to screen for HIV and viral Hepatitis for all patients aged 18 and over and those with ongoing risk factors. [place] Inquiry Pt receiving controlled substance: No [place] was queried for this patient: No Vital Signs: 09/18/24 11:15 Temperature 98.1 F Temperature Source Oral Pulse Rate [Left Brachial] 73 Respiratory Rate 20 Blood Pressure [Left Arm] 169/91 H Blood Pressure Mean [Left Arm] 117 Blood Pressure Source [Left Arm] Automatic Cuff Blood Pressure Position [Left Arm] Sitting 02 Sat by Pulse Oximetry 98 Oxygen Delivery Method Room Air Lab Data Lab results reviewed: Yes I reviewed the patient's lab results. Lab Results 09/18/24 11:07: Urine Color Dark yellow, Urine Appearance Cloudy, Urine pH 5.5, Ur Specific Callahan 1.005, Urine Protein Negative, Urine Glucose (UA) Negative, Urine Ketones Negative, Urine Blood 1+, Urine Nitrate Negative, Urine Bilirubin Negative, Urine Urobilinogen 0.2, Ur Leukocyte Esterase Trace Orders (Tests/Meds): ORDERS Category Date Time Status Urine Culture Stat Micro 09/18/24 11:10 Received
[2024-09-18 11:34] VITALS: BP 169/91; PULSE 73; RESP 18; TEMP 36.7; O2SAT 98
== END 2024-09-18 11:36 | disposition home or self-care (01) ==
PROVIDERS: Emergency Provider Nurse Practitioner; PCP Internal Medicine Adolescent Medicine
DX: N39.0 Urinary tract infection, site not specified (principal); R30.9 Painful micturition, unspecified; R30.0 Dysuria; R35.0 Frequency of micturition
CPT/HCPCS: 81003; 87086; 99212; G0381

== ENCOUNTER 2025-09-02 10:53 | Outpatient (CLI) | payer MEDICARE, SELFPAY ==
--- NOTE | 2025-09-02 11:00 | MM_ITS ---
PROCEDURE INFORMATION: Exam: MG Bilateral Screening 3D Mammography Exam date and time: 09/02/2025 10:53 AM Age: 70 years old Clinical indication: Screening examination TECHNIQUE: Imaging protocol: Bilateral Screening tomosynthesis and 2D mammography including computer-aided detection (CAD) when performed. COMPARISON: MG MM DIG SCREENING MAMM BI W/CAD 05/30/2021 8:31 AM FINDINGS: MAMMOGRAPHY: Breast composition: There are scattered areas of fibroglandular density. Mass: None. Architectural distortion: None. Calcifications: No suspicious calcifications. Asymmetric density: None. Skin thickening: None. Axillary adenopathy: None. IMPRESSION: No mammographic evidence of malignancy. Annual screening is recommended unless otherwise clinically indicated. ASSESSMENT: BI-RADS Category 1: Negative.
--- OUTSIDE RECORDS SUMMARY | 2025-09-02 11:22 | XMS_ITS | Clinical Summary ---
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 Role Phone John Calles MD Primary Care Provider [phone] Social History Tobacco Use Types Packs/Day Years Used Date Smoking Tobacco: Never Assessed Comments Unknown Sex and Gender Information Value Date Recorded Sex Assigned at Not on file Legal Sex Female 7:46 PM EDT Gender Identity Not on file Sexual Orientation Not on file Plan of Treatment Upcoming Encounters Date Type Department Care Team (Late st Contact Info) Description 02/10/2026 10:00 AM EDT Ovarian Cancer Screening [facility] Gynecology [address] [facility] [place] [address] Health Maintenance Due Date Last Done Comments [facility]-Bone Density Scan 1956 [facility]-Depression Screening 1956 [facility]-Hepatitis C Screening 1955 [facility]-Medicare Annual Wellness (AWV) 1955 [facility]-/Child/Adol SDOH Screenings 1955 [facility]- SDOH Screenings 02/05/1974 [facility]-Adult SDOH Screenings 02/05/1974 CT Colonography 02/05/2001 Colonoscopy 02/05/2001 FIT-DNA 02/05/2001 FIT 02/05/2001 FOBT 02/05/2001 Sigmoidoscopy 02/05/2001 [facility]-Colorectal Cancer Screening 02/05/2001 [facility]-Breast Cancer Screening 02/05/2006 [id number] Vaccine ( season) 2025 06/08/2024, 06/20/2023, 01/09/2022, Additional history exists [facility]-Influenza Vaccine (#1) 2025 06/08/2024, [facility]-DTaP,Tdap,and Td Vaccines (2 - Td or Tdap) 12/07/2034 12/07/2024 [facility]-Zoster Vaccines Completed 07/21/2020, [facility]-Pneumococcal Vaccine: 50+ Years Completed 10/08/2022, 06/12/2021 [facility]-RSV Vaccine: 60+ Years or Completed 07/24/2023 HPV Vaccines Aged Out No longer eligi ble based on patient's age to complete this topic [facility]-HIB Vaccines Aged Out No longer e ligible based on patient's age to complete this topic [facility]-Hepatitis A Vaccines Aged Out No longer eligible based on patient's age to complete this topic [facility]-IPV Vaccines Aged Out No longer e ligible based on patient's age to complete this topic [facility]-Rotavirus Vaccines Aged Out No lo nger eligible based on patient's age to complete this topic Insurance MEDICARE Care Teams 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
== END 2025-09-02 23:59 | disposition home or self-care (01) ==
LOC: RAD 10:53
PROVIDERS: PCP Internal Medicine Adolescent Medicine; Visit Provider Nurse Practitioner Obstetrics & Gynecology
DX: Z12.31 Encounter for screening mammogram for malignant neoplasm of breast (principal); R92.323 Mammographic fibroglandular density, bilateral breasts
CPT/HCPCS: 77063; 77067